=== PATIENT | female | born 1945 | race Hispanic/Latino ===

== ENCOUNTER 2016-10-19 18:04 | Inpatient (IN) | payer BC, MEDICARE, OTHER ==
[2016-10-19 18:08] VITALS: BMI 39.6
--- NOTE | 2016-10-19 18:40 | ED PDOC ---
Arrival/HPI - History of Present Illness Time/Duration: 1-3 hours Symptom Onset: Sudden Symptom Course: Unchanged Quality: Stabbing <Danielle Houser - Last Filed: 10/19/16 19:14> <Bashir Agudelo - Last Filed: 10/19/16 19:29> - General Chief Complaint: Chest Pain Time Seen by Provider: 10/19/16 18:11 - History of Present Illness Narrative History of Present Illness (Text): 10/19/16 18:36 71 year old female with past medical history of DM, CAD, history of fall with resultant difficulty walking presents with chest pain that began about 3 hours ago. Patient was laying in bed when pain began all of a sudden. pain is located in center of chest and radiates to B/L shoulders. Pain feels like a sharp stabbing pain. Pain is accompanied with SOB, diaphoresis and Nausea. Patient states that she had a fall last year and has a difficult time walking since then. Patient denie shaving any history of PE or DVT. No recent travels. Patient had a Lexiscan on 11/2016 which was essentially negative. Patient received Aspirin and nitro in ambulance (Danielle Houser) Past Medical History - Provider Review Nursing Documentation Reviewed: Yes - Infectious Disease Hx of Infectious Diseases: None - Tetanus Immunization Tetanus Immunization: Unknown - Cardiac Hx NC: Yes Hx Hypertension: Yes - Neurological Hx Syncope: Yes - Endocrine/Metabolic Hx Endocrine Disorders: Yes Hx Diabetes Mellitus Type 2: Yes - Musculoskeletal/Rheumatological Hx Arthritis: Yes - Gastrointestinal Hx Gastrointestinal Disorders: Yes - Genitourinary/Gynecological Hx Urinary Tract Infection: Yes (frequent) - Surgical History Hx Joint Replacement: Yes (right knee) Other/Comment: evangelina ryan cystocele repair - Anesthesia Hx Anesthesia: Yes Hx Anesthesia Reactions: No Hx Malignant Hyperthermia: No - Suicidal Assessment Feels Threatened In Home Enviroment: No <Danielle Houser - Last Filed: 10/19/16 19:14> Family/Social History Family/Social History: Unknown Family HX Smoking Status: Former Smoker Hx Alcohol Use: No Hx Substance Use Treatment: No <Danielle Houser - Last Filed: 10/19/16 19:14> Allergies/Home Meds <Danielle Houser - Last Filed: 10/19/16 19:14> <Bashir Agudelo - Last Filed: 10/19/16 19:29> Allergies/Adverse Reactions: Allergies acetaminophen [From Percocet] Allergy (Intermediate, Verified 11/23/15 11:04) VOMITING bacitracin Allergy (Intermediate, Verified 11/23/15 11:04) REDNESS oxycodone HCl [From Percocet] Allergy (Intermediate, Verified 11/23/15 11:04) VOMITING Penicillins Allergy (Intermediate, Verified 11/23/15 11:04) RASH shellfish derived Allergy (Intermediate, Verified 11/23/15 11:04) RASH Home Medications: Home Meds Medication Instructions Recorded Confirmed Aspirin [Aspirin Chewable] 81 mg PO DAILY 04/23/15 10/19/16 Clopidogrel Bisulfate [Plavix] 75 mg PO DAILY 04/23/15 10/19/16 Glipizide 10 mg PO BID 04/23/15 10/19/16 Insulin Detemir [Levemir] 60 unit SC HS 04/23/15 10/19/16 Isosorbide Mononitrate [Imdur] 60 mg PO DAILY 04/23/15 10/19/16 Metoprolol Tartrate [Lopressor] 25 mg PO BID 04/23/15 10/19/16 Montelukast Sodium [Singulair] 10 mg PO DAILY 04/23/15 10/19/16 Ramipril [Altace] 10 mg PO BID 04/23/15 10/19/16 Gabapentin [Neurontin] 300 mg PO TID 11/23/15 10/19/16 Insulin Aspart/Insulin Aspar 60 units SC ACB 11/23/15 10/19/16 [Novolog Mix 70/30 (70/30 units/ml)] Rosuvastatin Calcium [Crestor] 20 mg PO DAILY 11/23/15 10/19/16 Review of Systems - Review of Systems Constitutional: Normal Eyes: Normal ENT: Normal. absent: Sore Throat, Rhinorrhea Respiratory: SOB. absent: Cough Cardiovascular: Chest Pain, Calf Pain. absent: Palpitations, Edema Gastrointestinal: Normal. absent: Abdominal Pain, Constipation, Diarrhea, Nausea, Vomiting Genitourinary Female: Normal. absent: Dysuria, Frequency Musculoskeletal: Normal. absent: Arthralgias, Back Pain Skin: Normal. absent: Rash, Skin Lesions Neurological: Normal. absent: Headache, Dizziness Endocrine: Diaphoresis Hemo/Lymphatic: Normal <Karim,Danielle - Last Filed: 10/19/16 19:14> Physical Exam Temperature: Afebrile Blood Pressure: Normal Pulse: Tachycardic Respiratory Rate: Normal Appearance: Positive for: Uncomfortable Pain Distress: Moderate Mental Status: Positive for: Alert and Oriented X 3 - Systems Exam Head: Present: Atraumatic, Normocephalic Pupils: Present: PERRL Extroacular Muscles: Present: EOMI Conjunctiva: Present: Normal Mouth: Present: Moist Mucous Membranes Respiratory/Chest: Present: Clear to Auscultation, Good Air Exchange. No: Respiratory Distress, Accessory Muscle Use, Wheezes, Rales, Rhonchi Cardiovascular: Present: Normal S1, S2, Tachycardic. No: Murmurs, Irregular Rhythm, Rub, Gallop Abdomen: Present: Normal Bowel Sounds. No: Tenderness, Distention, Peritoneal Signs, Guarding Lower Extremity: Present: CALF TENDERNESS (left lower leg), NORMAL PULSES. No: Edema Neurological: Present: GCS=15 Skin: Present: Warm, Dry, Normal Color. No: Rashes Psychiatric: Present: Alert, Oriented x 3, Normal Insight, Normal Concentration <Karim,Danielle - Last Filed: 10/19/16 19:14> Medical Decision Making - EKG Interpretation Interpreted by ED Physician: Yes Type: 12 lead EKG <Mik,Danielle - Last Filed: 10/19/16 19:14> <Bashir Agudelo - Last Filed: 10/19/16 19:29> ED Course and Treatment: 10/19/16 18:44 CP r/o PE vs. ACS vs. PNA. Patient is tachycardic on exam with HR of 108 Will check; EKG CTA PE protocol CBC CMP cardiac isoenzymes LE US CXR Patient will be given morphine 2 mg IVP 10/19/16 19:15 Initial blood work shows elevated WBC count Will check: VBG with lactic acid blood and urine cultures and urinalysis Patient Blood glucose is 349. Patient will be given 10 units of Levemir (Karim,Danielle) 10/19/16 19:26 I agree with resident history and physical, disposition and plan. WBC elevated at 17. Blood cultures and UA added. RN reported no fever. Pending documentation. Insulin give for glucose elevation. Case signed out to Dr. Simon to f/u Labs, UA, Sono, CT, reevaluation and admit. (Bashir Agudelo) - Lab Interpretations Lab Results: 10/19/16 18:47 10/19/16 18:47 Lab Results 10/19/16 18:47: Sodium 128 L, Potassium 5.0, Chloride 91 L, Carbon Dioxide 26, Anion Gap 16, BUN 27 H, Creatinine 1.2, Est GFR ( Amer) 53, Est GFR (Non- Af Amer) 44, Random Glucose 346 H*, Calcium 8.7, Total Bilirubin 0.5, AST 40 H, ALT 27, Alkaline Phosphatase 140 H, Lactate Dehydrogenase 434, Total Creatine Kinase 37, Troponin I < 0.01, Total Protein 7.4, Albumin 3.7, Globulin 3.8, Albumin/Globulin Ratio 1.0 L 10/19/16 18:47: WBC 17.7 H, RBC 5.08, Hgb 12.9, Hct 40.3, MCV 79.3 L, MCH 25.4, MCHC 32.0, RDW 15.6 H, Plt Count 348, MPV 9.4 - RAD Interpretation Radiology Orders: 10/19/16 18:28 DUPLEX LOWER EXTRM VEIN BILAT [US] Stat 10/19/16 18:34 ANGIO CHEST PE PROTOCOL [CT] Stat - EKG Interpretation EKG Interpretation (Text): 10/19/16 18:53 Sinus tachycardia HR of 109 ST depressions in V5, V6, I. Prominent S waves in I. T wave inversions in III ST depressions are new compared to previous EKG (Danielle Houser) - Medication Orders Current Medication Orders: Insulin Detemir (Levemir) 10 unit SC ONCE ONE Stop: 10/19/16 19:31 Discontinued Medications Morphine Sulfate (Morphine) 2 mg IVP STAT STA Stop: 10/19/16 19:05 Disposition/Present on Arrival - Present on Arrival Any Indicators Present on Arrival: Yes History of DVT/PE: No History of Uncontrolled Diabetes: Yes Urinary Catheter: No History of Decub. Ulcer: No History Surgical Site Infection Following: None - Disposition Have Diagnosis and Disposition been Completed?: Yes Disposition Time: 19:16 <Danielle Houser - Last Filed: 10/19/16 19:14> - Present on Arrival Any Indicators Present on Arrival: Yes - Disposition Have Diagnosis and Disposition been Completed?: No <Bashir Agudelo - Last Filed: 10/19/16 19:29> - Disposition Diagnosis: Chest pain Patient Problems: Current Active Problems Problem Status Onset Chest pain Acute Condition: GUARDED Discharge Instructions (ExitCare): Chest Pain (ED) Referrals: Ariel Whitehead MD [Primary Care Provider] - Follow up with primary Forms: [employer] (Turkish)
[2016-10-19 18:57] LABS: HEMOGLOBIN 12.9 gm/dL (12.0-16.0); MEAN CELL VOLUME 79.3 fL (80.0-105.0); MEAN CORPUSCULAR HEMOGLOBIN 25.4 pg (25.0-35.0); MEAN PLATELET VOLUME 9.4 fl (7.0-11.0); RBC 5.08 10^6/uL (3.5-6.1); RED CELL DISTRIBUTION WIDTH 15.6 % (11.5-14.5); WHITE BLOOD COUNT 17.7 10^3/ul (4.5-11.0)
[2016-10-19] MEDS ORDERED: Morphine 4 mg/ml ISec IVP STA (19:02)
[2016-10-19 19:03] LABS: ALBUMIN 3.7 g/dL (3.0-4.8); ALT/SGPT 27 U/L (7-56); AST/SGOT 40 U/L (15-39); BLOOD UREA NITROGEN 27 mg/dL (7-21); CALCIUM 8.7 mg/dL (8.4-10.5); GFR AFRICAN-AMERICAN 53; GFR NON-AFRICAN AMERICAN 44
[2016-10-19] MEDS ORDERED: Morphine 2 mg/ml ISec IVP STA (19:04)
[2016-10-19 19:15] LABS: TROPONIN I < 0.01 ng/mL
[2016-10-19] MEDS ORDERED: Insulin Detemir 100 units/ml Vial (Levemir) SC ONE (19:30)
[2016-10-19] MEDS ORDERED: Enoxaparin 120 mg Syringe SC STA (19:34)
[2016-10-19] MEDS ORDERED: Sodium Chloride 0.9% 500 ML IV STA ×2 (20:03→20:15)
--- NOTE | 2016-10-19 20:16 | ED PDOC ---
Physical Exam Vital Signs Temp Pulse Resp BP Pulse Ox 10/19/16 22:31 85 18 137/67 91 L 10/19/16 19:26 97.7 F 10/19/16 18:05 105 H 15 139/87 94 L Medical Decision Making ED Course and Treatment: 10/19/16 20:13 sign out from dayshift pt with chest pain, leukocytosis, hyperglycemia, multiple episodes of diarrhea and abdominal discomfort. As her signout, there is suspicion for PE, also EKG with ST-depressions lovenox ordered coags also added on pt being hydrated before going to CT 10/19/16 20:23 pt c/o abd pain, morphine ordered LLQ ttp on exam pt states she has chronic umbulical drainage as well abx ordered pt for CT chest/abd/pelvis 10/19/16 20:26 Patient shows sinus tachycardia 109 bpm, no ST segment elevations. ST depressions noted in lateral leads. Interpreted by me. These were not present on patient's previous records from 2016. 10/19/16 21:33 pt states she has itching and rash from shellfish solumedrol and benadryl ordered before IV contrast CT Angiography Chest With Intravenous Contrast IMPRESSION: 1 cm spiculated focus at left lung apex may be related to scarring, but comparison with prior imaging versus followup imaging recommended for further evaluation. Increased markings at left lung base likely on the basis of atelectasis, but cannot definitively exclude developing infiltrate. Atelectasis/ scarring.. Dictated and Authenticated by: Blanka Christina MD 10/19/2016 11:04 PM Eastern Time ([place] & Lisa CT Abdomen and Pelvis With Intravenous Contrast IMPRESSION: 1. Liver is enlarged measuring 22 CM craniocaudal. 2. Multiple calcified gallstones are present. 3. There appear to be multiple calcifications within the common bile duct compatible with choledocholithiasis. 4. Small right adrenal nodule measuring 1.3 CM is incompletely characterized on this postcontrast study. 5. There is a question of mild pericolonic stranding at the sigmoid colon. It is difficult to exclude the possibility of a mild diverticulitis. Please correlate clinically. 6. There are a few tiny gas bubbles nondependent in the bladder. This could potentially relate to recent instrumentation. Alternatively, this could relate to infectious process or colovesical fistula. Please correlate clinically. 7. Additional incidental and/or chronic findings as described. Dictated and Authenticated by: Enrico Mansfield MD 10/19/2016 11:16 PM Eastern Time ([place] & Lisa) 10/19/16 23:[address] Quiñonez in 2011. Agreeable with being admitted to his service again dw Dr. Negrete in detail, accepted pt resident informed pt states she currently has no abd pain. states she still has slight chest discomfort repeat EKG ordered, will also admin ntg 10/20/16 00:00 Repeat EKG shows no evolving changes. Normal sinus, 81 bpm, lateral ST depressions. Interpreted by me. - Lab Interpretations Lab Results: 10/19/16 18:47 10/19/16 18:47 Lab Results 10/19/16 20:16: pO2 158 H, VBG pH 7.33, VBG pCO2 44.0, VBG HCO3 23.2, VBG O2 Sat (Calc) 99.0 H, VBG Base Excess -2.8 L 10/19/16 18:47: Sodium 128 L, Potassium 5.0, Chloride 91 L, Carbon Dioxide 26, Anion Gap 16, BUN 27 H, Creatinine 1.2, Est GFR ( Amer) 53, Est GFR (Non- Af Amer) 44, Random Glucose 346 H*, Calcium 8.7, Total Bilirubin 0.5, AST 40 H, ALT 27, Alkaline Phosphatase 140 H, Lactate Dehydrogenase 434, Total Creatine Kinase 37, Troponin I < 0.01, Total Protein 7.4, Albumin 3.7, Globulin 3.8, Albumin/Globulin Ratio 1.0 L 10/19/16 18:47: WBC 17.7 H, RBC 5.08, Hgb 12.9, Hct 40.3, MCV 79.3 L, MCH 25.4, MCHC 32.0, RDW 15.6 H, Plt Count 348, MPV 9.4 - RAD Interpretation Radiology Orders: 10/19/16 18:28 DUPLEX LOWER EXTRM VEIN BILAT [US] Stat 10/19/16 18:34 ANGIO CHEST PE PROTOCOL [CT] Stat 10/19/16 20:22 ABD & PELVIS IV CONTRAST ONLY [CT] Stat - Medication Orders Current Medication Orders: Discontinued Medications Aspirin (Aspirin Chewable) 324 mg PO STAT STA Stop: 10/19/16 19:34 Last Admin: 10/19/16 20:01 Dose: 324 mg Diphenhydramine HCl (Benadryl) 50 mg IVP STAT STA Stop: 10/19/16 21:34 Last Admin: 10/19/16 21:39 Dose: 50 mg Diphenhydramine HCl (Benadryl) Confirm Administered Dose 50 mg .ROUTE .STK-MED ONE Stop: 10/19/16 21:37 Last Admin: 10/19/16 21:39 Dose: Enoxaparin Sodium (Lovenox) 110 mg SC STAT STA PRN Reason: Protocol Stop: 10/19/16 19:35 Last Admin: 10/19/16 20:00 Dose: 110 mg Sodium Chloride (Sodium Chloride 0.9%) 500 mls @ 999 mls/hr IV .Q31M STA Stop: 10/19/16 20:33 Last Admin: 10/19/16 20:04 Dose: 999 mls/hr Sodium Chloride (Sodium Chloride 0.9%) 500 mls @ 1,000 mls/hr IV .Q30M STA Stop: 10/19/16 20:44 Last Admin: 10/19/16 20:15 Dose: Metronidazole (Flagyl) 500 mg in 100 mls @ 100 mls/hr IVPB STAT STA PRN Reason: Protocol Stop: 10/19/16 21:20 Ceftriaxone Sodium (Rocephin 1 Gram Ivpb) 1 gm in 100 mls @ 200 mls/hr IV STAT STA PRN Reason: Protocol Stop: 10/19/16 20:50 Last Admin: 10/19/16 23:25 Dose: 200 mls/hr Insulin Detemir (Levemir) 10 unit SC ONCE ONE Stop: 10/19/16 19:31 Last Admin: 10/19/16 20:00 Dose: Not Given Non-Admin Reason: Patient Refused Iohexol (Omnipaque 350 150 Ml) Confirm Administered Dose 150 ml .ROUTE .STK-MED ONE Stop: 10/19/16 21:39 Methylprednisolone (Solu-Medrol) 125 mg IVP STAT STA Stop: 10/19/16 21:34 Last Admin: 10/19/16 21:39 Dose: 125 mg Methylprednisolone (Solu-Medrol) Confirm Administered Dose 125 mg .ROUTE .STK- MED ONE Stop: 10/19/16 21:37 Last Admin: 10/19/16 21:40 Dose: Morphine Sulfate (Morphine) 2 mg IVP STAT STA Stop: 10/19/16 19:05 Last Admin: 10/19/16 20:00 Dose: 2 mg Morphine Sulfate (Morphine) 8 mg IVP STAT STA Stop: 10/19/16 20:22 Last Admin: 10/19/16 20:32 Dose: 8 mg Disposition/Present on Arrival - Present on Arrival Any Indicators Present on Arrival: Yes History of DVT/PE: No History of Uncontrolled Diabetes: Yes Urinary Catheter: No History of Decub. Ulcer: No History Surgical Site Infection Following: None - Disposition Have Diagnosis and Disposition been Completed?: Yes Diagnosis: Chest pain Disposition: HOSPITALIZED Disposition Time: 23:58 Patient Plan: Admission Patient Problems: Current Active Problems Problem Status Onset Chest pain Acute Condition: FAIR Discharge Instructions (ExitCare): Chest Pain (ED) Referrals: Ariel Whitehead MD [Primary Care Provider] - Follow up with primary Forms: [employer] (Pashto)
[2016-10-19 20:20] LABS: VENOUS BLOOD GAS BASE EXCESS -2.8 mmol/L (0.0-2.0); VENOUS BLOOD GAS PO2 158 mm/Hg (30-55); VENOUS BLOOD PH 7.33 (7.32-7.43)
[2016-10-19] MEDS ORDERED: cefTRIAXone 1 gm 1 GM/100 ML BAG IV STA (20:21)
[2016-10-19] MEDS ORDERED: metroNIDAZOLE IV 500 mg/100 ml 500 MG/100 ML BAG IVPB STA (20:21)
[2016-10-19] MEDS ORDERED: DiphenhydrAMINE 50 mg/ml Inj IVP STA (21:33)
[2016-10-19] MEDS ORDERED: DiphenhydrAMINE 50 mg/ml Inj ONE (21:36)
--- NOTE | 2016-10-19 23:04 | CT ---
EXAM: CT Angiography Chest With Intravenous Contrast CLINICAL HISTORY: 71 years old, female; Pain; Chest pain; Additional info: Chest pain, SOB TECHNIQUE: Axial computed tomographic angiography images of the chest with intravenous contrast using pulmonary embolism protocol. This CT exam was performed using one or more of the following dose reduction techniques: automated exposure control, adjustment of the mA and/or kV according to patient size, and/or use of iterative reconstruction technique. MIP reconstructed images were created and reviewed. Coronal and sagittal reformatted images were created and reviewed. CONTRAST: 149 mL of OMNI 349 administered intravenously. COMPARISON: TMT - MYOCARDIAL STRESS REST SPECT 12/06/2015 7:27:19 AM FINDINGS: Pulmonary arteries: Unremarkable as visualized. No pulmonary embolism. Aorta: Atherosclerosis. No thoracic aortic aneurysm. Lungs: 1 cm spiculated focus at left lung apex may be related to scarring, but comparison with prior imaging versus followup imaging recommended for further evaluation. Increased markings at left lung base likely on the basis of atelectasis, but cannot definitively exclude developing infiltrate. Atelectasis/scarring. No mass. No consolidation. Pleural space: No significant effusion. No pneumothorax. Heart: No cardiomegaly. No significant pericardial effusion. No evidence of RV dysfunction. Bones: No acute fracture. Degenerative changes. Lymph nodes: No enlarged lymph nodes. Hypoattenuating lesion noted in the left lobe of the liver. Right adrenal nodule/mass visualized. Technique limits evaluation. Correlate with report for currently performed dedicated study. IMPRESSION: 1 cm spiculated focus at left lung apex may be related to scarring, but comparison with prior imaging versus followup imaging recommended for further evaluation. Increased markings at left lung base likely on the basis of atelectasis, but cannot definitively exclude developing infiltrate. Atelectasis/scarring. Please see additional details/findings as above.
--- NOTE | 2016-10-19 23:16 | CT ---
EXAM: CT Abdomen and Pelvis With Intravenous Contrast CLINICAL HISTORY: 71 years old, female; Pain; Abdominal pain; Prior surgery; Surgery type: Hysterectomy - 3 hernia repairs; Additional info: Abd pain, leukocytosis TECHNIQUE: Axial computed tomography images of the abdomen and pelvis with intravenous contrast. This CT exam was performed using one or more of the following dose reduction techniques: automated exposure control, adjustment of the mA and/or kV according to patient size, and/or use of iterative reconstruction technique. Coronal and sagittal reformatted images were created and reviewed. CONTRAST: 149 mL of OMNI 350 administered intravenously. COMPARISON: No relevant prior studies available. FINDINGS: Lower thorax: Mild atelectasis at the bases, left greater than right. ABDOMEN: Liver: Liver is enlarged measuring 22 CM craniocaudal. There are no focal liver lesions present. Gallbladder and bile ducts: Multiple calcified gallstones are present. There appear to be multiple calcifications within the common bile duct compatible with choledocholithiasis. Pancreas: Unremarkable. No mass. No ductal dilation. Spleen: The spleen is normal. Adrenals: Small right adrenal nodule measuring 1.3 CM is incompletely characterized on this postcontrast study. Kidneys and ureters: There are bilateral renal cysts, largest at the left midpole measuring 3.1 CM. Stomach and bowel: There is a question of mild pericolonic stranding at the sigmoid colon. It is difficult to exclude the possibility of a mild diverticulitis. Please correlate clinically. The stomach is normal. Moderate diverticulosis is present in the sigmoid and descending colon. Colonic constipation is present. There is no evidence of intestinal obstruction. There are multiple small ventral hernia is, some of which contain only fat and others contain unobstructed loops of small bowel. This is despite the presence of a hernia mesh at the anterior abdominal fascia on the left. Appendix: No findings to suggest acute appendicitis. PELVIS: Bladder: There are a few tiny gas bubbles nondependent in the bladder. This could potentially relate to recent instrumentation. Alternatively, this could relate to infectious process or colovesical fistula. Please correlate clinically. Reproductive: There has been a hysterectomy. ABDOMEN and PELVIS: Intraperitoneal space: There is no evidence of free intraperitoneal fluid. There is no free intraperitoneal air. Bones/joints: There are old healed fractures of the left inferior pubic ramus and left subcapital region. There are moderate degenerative changes present. There is moderate diffuse osteopenia. No dislocation. Soft tissues: Unremarkable. Vasculature: Abdominal aorta demonstrates moderate to severe atherosclerotic calcification without aneurysm. Lymph nodes: There is no evidence of lymphadenopathy. IMPRESSION: 1. Liver is enlarged measuring 22 CM craniocaudal. 2. Multiple calcified gallstones are present. 3. There appear to be multiple calcifications within the common bile duct compatible with choledocholithiasis. 4. Small right adrenal nodule measuring 1.3 CM is incompletely characterized on this postcontrast study. 5. There is a question of mild pericolonic stranding at the sigmoid colon. It is difficult to exclude the possibility of a mild diverticulitis. Please correlate clinically. 6. There are a few tiny gas bubbles nondependent in the bladder. This could potentially relate to recent instrumentation. Alternatively, this could relate to infectious process or colovesical fistula. Please correlate clinically. 7. Additional incidental and/or chronic findings as described.
--- NOTE | 2016-10-20 01:02 | CP.PCM.HP ---
History of Present Illness - History of Present Illness History of Present Illness: CC: chest pain 71 F with pmh of IDDM, CAD 4 stents, Diverticulitis, colotis, presents with chest pain. Pt states that her chest pain fisrt started 3-4 hours prior to arrival. Patient was laying in bed when pain began all of a sudden. Pt states that she felt like her chest is going to split so she came to the ED. Pain 10/ 10 in severity. radiating to b/l shoulders and neck. Pain feels like a sharp stabbing pain. She states that her chest pain was associated with some nausea and diaphoresis. She denied any shortness of breath. She denies doing at home to make it better. No other complaints. Denies any acevedo, dizziness, f/c, son, abd pain, n/v/d. PMH: IDDM, CAD 4 stents, Diverticulitis, colitis PSH: hysterectomy, appendectomy, mesh implant in belly "broke" ALL: PCN sea food FH: sis with DM, Brother had "hole in heart" SH: smoked for >60 years, denies drinking or drugs Present on Admission - Present on Admission Any Indicators Present on Admission: No Review of Systems - Review of Systems All systems: reviewed and no additional remarkable complaints except (HPI) Past Patient History - Infectious Disease Hx of Infectious Diseases: None - Tetanus Immunizations Tetanus Immunization: Unknown - Past Medical History & Family History Past Medical History?: Yes - Past Social History Smoking Status: Former Smoker - CARDIAC Hx Heart Attack: Yes Hx Hypertension: Yes - NEUROLOGICAL Hx Syncope: Yes - ENDOCRINE/METABOLIC Hx Endocrine Disorders: Yes Hx Diabetes Mellitus Type 2: Yes - MUSCULOSKELETAL/RHEUMATOLOGICAL Hx Arthritis: Yes - GASTROINTESTINAL Hx Gastrointestinal Disorders: Yes - GENITOURINARY/GYNECOLOGICAL Hx Urinary Tract Infection: Yes (frequent) - SURGICAL HISTORY Hx Joint Replacement: Yes (right knee) Other/Comment: evangelina ryan cystocele repair - ANESTHESIA Hx Anesthesia: Yes Hx Anesthesia Reactions: No Hx Malignant Hyperthermia: No Meds Allergies/Adverse Reactions: Allergies Allergy/AdvReac Type Severity Reaction Status Date / Time acetaminophen [From Percocet] Allergy Intermediate VOMITING Verified 11/23/15 11 :04 bacitracin Allergy Intermediate REDNESS Verified 11/23/15 11:04 oxycodone HCl [From Percocet] Allergy Intermediate VOMITING Verified 11/23/15 11 :04 Penicillins Allergy Intermediate RASH Verified 11/23/15 11:04 shellfish derived Allergy Intermediate RASH Verified 11/23/15 11:04 Physical Exam - Constitutional Appears: No Acute Distress - Head Exam Head Exam: ATRAUMATIC, NORMAL INSPECTION, NORMOCEPHALIC - Eye Exam Eye Exam: EOMI, Normal appearance, PERRL Pupil Exam: NORMAL ACCOMODATION, PERRL - ENT Exam ENT Exam: Mucous Membranes Moist, Normal Exam - Neck Exam Neck exam: Positive for: Normal Inspection - Respiratory Exam Respiratory Exam: Clear to Auscultation Bilateral, NORMAL BREATHING PATTERN. absent: Wheezes - Cardiovascular Exam Cardiovascular Exam: REGULAR RHYTHM, RRR, +S1, +S2 - GI/Abdominal Exam GI & Abdominal Exam: Normal Bowel Sounds, Soft. absent: Tenderness - Extremities Exam Extremities exam: Positive for: normal inspection. Negative for: calf tenderness - Back Exam Back exam: NORMAL INSPECTION - Neurological Exam Neurological exam: Alert, CN II-XII Intact, Oriented x3 - Psychiatric Exam Psychiatric exam: Normal Affect, Normal Mood - Skin Skin Exam: Dry, Intact, Normal Color, Warm Results - Vital Signs Recent Vital Signs: Last Vital Signs Temp 97.7 F 10/19/16 19:26 Pulse 83 10/20/16 00:00 Resp 18 10/20/16 00:00 BP 123/60 10/20/16 00:00 Pulse Ox 94 L 10/20/16 00:00 - Labs Result Diagrams: 10/19/16 18:47 10/19/16 18:47 Assessment & Plan - Assessment and Plan (Free Text) Assessment: 71 F with pmh of IDDM, CAD 4 stents, Diverticulitis, colotis, presents with chest pain. R/o ACS. 1. Chest pain r/o ACS - Aspirin 325mg x 1, lovenox 110mg x 1 - EKG in the ED showed 81bpm some st depression in the lateral leads - Trops x 1 negative - Serial trops - 12/06/15 stress test: normal SPECT LVEF 64% no chnage to prior 06/05/13 - F/u Ech in the AM - cardiology consulted for recs - Cont aspirin and plavix - Cont ramipril, statin, Metoprolol, Imdur - F/u Lipid panel, TSH, Hba1c - Daily labs -US ext: prelim read negative for DVTs - CT chest : 1 cm spiculated focus at left lung apex may be related to scarring , but comparison with prior imaging versus followup imaging recommended for further evaluation. Increased markings at left lung base likely on the basis of atelectasis, but cannot definitively exclude developing infiltrate. Atelectasis/ scarring. - CT abdomen 1. Liver is enlarged measuring 22 CM craniocaudal. 2. Multiple calcified gallstones are present. 3. There appear to be multiple calcifications within the common bile duct compatible with choledocholithiasis. 4. Small right adrenal nodule measuring 1.3 CM is incompletely characterized on this postcontrast study. 5. There is a question of mild pericolonic stranding at the sigmoid colon. It is difficult to exclude the possibility of a mild diverticulitis. Please correlate clinically. 6. There are a few tiny gas bubbles nondependent in the bladder. This could potentially relate to recent instrumentation. Alternatively, this could relate to infectious process or colovesical fistula. Please correlate clinically. 2. DM: - Cont home Insulin Levemir - novolog 70/30 - ACHS 3. HLD: - Cont home statin 4. Hyponatremia - s/p 2 L bolus in the ED - F/u morning Na 5. GI/DVT ppx - Pepcid and Lovenox sc Case and plan was reviewed and discussed with Dr Negrete.
[2016-10-20 02:13] LABS: VENOUS BLOOD GAS BASE EXCESS -0.7 mmol/L (0.0-2.0); VENOUS BLOOD GAS PO2 43 mm/Hg (30-55)
[2016-10-20 02:40] LABS: INR 0.97 (0.93-1.08); PARTIAL THROMBOPLASTIN TIME 38.9 Seconds (23.7-30.8); PROTHROMBIN TIME 10.5 Seconds (9.9-11.8)
[2016-10-20] MEDS ORDERED: Morphine 4 mg/ml ISec IVP STA ×2 (02:50→07:11)
[2016-10-20 07:06] LABS: BASO # 0.01 K/mm3 (0.0-2.0); BASO % 0.1 % (0.0-3.0); EOS % 0.1 % (1.5-5.0); GRAN # 13.22 (1.4-6.5); GRAN % 93.3 % (50.0-68.0); HEMOGLOBIN 12.8 gm/dL (12.0-16.0); LYMPH # 0.8 (1.2-3.4); LYMPH % 5.9 % (22.0-35.0); MEAN CELL VOLUME 79.8 fL (80.0-105.0); MEAN CORPUSCULAR HEMOGLOBIN 25.3 pg (25.0-35.0); MEAN CORPUSCULAR HGB CONC 31.8 g/dl (31.0-37.0); MEAN PLATELET VOLUME 9.3 fl (7.0-11.0); MONO # 0.1 (0.1-0.6); MONO % 0.6 % (1.0-6.0); PLATELET COUNT 309 10^3/uL (120.0-450.0); RBC 5.05 10^6/uL (3.5-6.1); RED CELL DISTRIBUTION WIDTH 15.9 % (11.5-14.5); WHITE BLOOD COUNT 14.2 10^3/ul (4.5-11.0)
[2016-10-20 07:22] LABS: ALB/GLOB RATIO 1.1 (1.1-1.8); ALBUMIN 3.7 g/dL (3.0-4.8); ALT/SGPT 18 U/L (7-56); AST/SGOT 23 U/L (15-39); BLOOD UREA NITROGEN 23 mg/dL (7-21); CALCIUM 8.8 mg/dL (8.4-10.5); GFR AFRICAN-AMERICAN > 60; GFR NON-AFRICAN AMERICAN 54; HDL CHOLESTEROL 31 mg/dL (29-60)
[2016-10-20 07:33] LABS: LDL CHOLESTEROL 130 mg/dL (0-129)
[2016-10-20 07:35] LABS: TROPONIN I 0.26 ng/mL
[2016-10-20] MEDS ORDERED: Lidocaine 2% Inj (20ml) ONE ×2 (07:39→08:19)
[2016-10-20] MEDS ORDERED: Midazolam 2 MG/2 ML VIAL ONE ×4 (07:40→10:55)
[2016-10-20] MEDS ORDERED: Iodixanol 320 MG/ML 200 ML BOTTLE IV ONE (07:41)
[2016-10-20] MEDS ORDERED: Iodixanol 320 MG/ML 100 ML BOTTLE IV ONE (07:41)
[2016-10-20] MEDS ORDERED: DiphenhydrAMINE 50 mg/ml Inj ONE (07:42)
[2016-10-20] MEDS ORDERED: Famotidine 20mg/50ml 20 MG/50 ML BAG IVPB ONE (07:42)
[2016-10-20] MEDS ORDERED: Nitroglycerin 50mg in D5W 50 MG/250 ML BOTTLE IV ONE (08:29)
[2016-10-20] MEDS ORDERED: Morphine 2 mg/ml ISec ONE ×2 (08:38→08:42)
[2016-10-20] MEDS ORDERED: Phenylephrine 10 mg/ml Inj ONE (08:48)
--- NOTE | 2016-10-20 09:10 | CARD ---
APPROVED REPORT EKG Measurement Heart [id number] <Conclusion> Normal sinus rhythm PRWP Nonspecific ST abnormality Prolonged QTc
--- NOTE | 2016-10-20 09:16 | CARD ---
APPROVED REPORT EKG Measurement Heart [id number] <Conclusion> Sinus tachycardia QS in V 1, possible septal infarct, age undetermined and new since ECG 02/02/12 STTW changes c/w ischemia, new Prolonged QTc.
--- NOTE | 2016-10-20 09:19 | CARD ---
APPROVED REPORT EKG Measurement Heart [id number] <Conclusion> Normal sinus rhythm STTW changes
[2016-10-20] MEDS ORDERED: Sodium Chloride 0.9% 1,000 ML IV SCH (09:30)
[2016-10-20 10:56] LABS: BLOOD UREA NITROGEN 22 mg/dL (7-21); CALCIUM 8.5 mg/dL (8.4-10.5); GFR AFRICAN-AMERICAN > 60; GFR NON-AFRICAN AMERICAN > 60
[2016-10-20 11:07] LABS: VENOUS BLOOD GAS BASE EXCESS -6.7 mmol/L (0.0-2.0); VENOUS BLOOD GAS PO2 39 mm/Hg (30-55)
[2016-10-20 11:11] LABS: VENOUS BLOOD PH 7.15 (7.32-7.43)
[2016-10-20] MEDS: Enoxaparin 40 mg Syringe SC SCH (11:14)
--- NOTE | 2016-10-20 12:53 | CP.PCM.CON ---
History of Present Illness - History of Present Illness History of Present Illness: 71 y/o F presented to the ICU after cardiac cath for unstable NSTEMI with active CP. S/P LAD and Circ JUNIOR with hypotension during cath which required vasopressors briefly. Currently aa o x 3 with intact vital signs. Review of Systems - Constitutional Constitutional: absent: As Per HPI, Anorexia, Chills, Daytime Sleepiness, Excessive Sweating, Fatigue, Fever, Frequent Falls, Headache, Increased Appetite , Lethargy, Malaise, Night Sweats, Snoring, Sleep Apnea, Weight Gain, Weight Loss, Weakness, Other - EENT Eyes: absent: As Per HPI, Blind Spots, Blurred Vision, Change in Vision, Decreased Night Vision, Diplopia, Discharge, Dry Eye, Exophthalmos, Floaters, Irritation, Itchy Eyes, Loss of Peripheral Vision, Pain, Photophobia, Requires Corrective Lenses, Sees Flashes, Spots in Vision, Tunnel Vision, Other Visual Disturbances, Loss of Vision, Other Ears: absent: As Per HPI, Decreased Hearing, Ear Discharge, Ear Pain, Tinnitus, Abnormal Hearing, Disequilibrium, Dizziness, Other Nose/Mouth/Throat: absent: As Per HPI, Epistaxis, Nasal Congestion, Nasal Discharge, Nasal Obstruction, Nasal Trauma, Nose Pain, Post Nasal Drip, Sinus Pain, Sinus Pressure, Bleeding Gums, Change in Voice, Dental Pain, Dry Mouth, Dysphagia, Halitosis, Hoarsness, Lip Swelling, Mouth Lesions, Mouth Pain, Odynophagia, Sore Throat, Throat Swelling, Tongue Swelling, Facial Pain, Neck Pain, Neck Mass, Other - Breasts Breasts: absent: As Per HPI, Change in Shape, Mass, Pain, Nipple Discharge, Nipple Inversion, Skin Changes, Swelling, Other - Cardiovascular Cardiovascular: absent: As Per HPI, Acrocyanosis, Chest Pain, Chest Pain at Rest , Chest Pain with Activity, Claudication, Diaphoresis, Dyspnea, Dyspnea on Exertion, Edema, Irregular Heart Rhythm, Pain Radiating to Arm/Neck/Jaw, Leg Edema, Leg Ulcers, Lightheadedness, Orthopnea, Palpitations, Paroxysmal Nocturnal Dyspnea, Pedal Edema, Radiating Pain, Rapid Heart Rate, Slow Heart Rate, Syncope, Other - Respiratory Respiratory: absent: As Per HPI, Cough, Dyspnea, Hemoptysis, Dyspnea on Exertion , Wheezing, Snoring, Stridor, Pain on Inspiration, Chest Congestion, Excessive Mucous Production, Change in Mucous Color, Pain with Coughing, Other - Gastrointestinal Gastrointestinal: absent: As Per HPI, Abdominal Pain, Belching, Bloating, Change in Bowel Habits, Change in Stool Character, Coffee Ground Emesis, Constipation, Cramping, Diarrhea, Dyspepsia, Dysphagia, Early Satiety, Excessive Flatus, Fecal Incontinence, Heartburn, Hematemesis, Hematochezia, Loose Stools, Melena, Nausea, Odynophagia, Temesmus, Vomiting, Other - Genitourinary Genitourinary: Urinary Urgency - Reproductive: Female Reproductive:Female: absent: As Per HPI, Amenorrhea, Amenorrhea/ Control, Currently Menstual, Cycle <21 Days, Cycle >35 Days, Cycle Variable, Menses 1-7 Days, Menses >/= 8 Days, Menses Variable, Cycle > 4 Weeks Between, No Menses for 6 Months, Heavy Menses, Light Menses, Normal Menses, Spotting Between Cycles , S/P Hysterectomy, Menopausal, Post Menopausal, Premenarche, Abnormal Vaginal Bleeding, Dysmenorrhea, Dyspareunia, Genital Lesions, Genital Pruritis, Pelvic Pain, Prolapse Symptoms, Sexual Dysfunction, Vaginal Discharge, Vaginal Dryness , Vaginal Odor, Vaginal Pruritis, Other - Menstruation Menstruation: absent: As Per HPI, Amenorrhea, Amenorrhea/ Control, Currently Menstual, Cycle <21 Days, Cycle >35 Days, Cycle Variable, Menses 1-7 Days, Menses >/= 8 Days, Menses Variable, Cycle > 4 Weeks Between, No Menses for 6 Months, Heavy Menses, Light Menses, Normal Menses, Spotting Between Cycles , S/P Hysterectomy, Menopausal, Post Menopausal, Premenarche, Abnormal Vaginal Bleeding, Dysmenorrhea, Other - Musculoskeletal Musculoskeletal: absent: As Per HPI, Abnormal Gait, Arthralgias, Atrophy, Back Pain, Deformity, Joint Swelling, Limited Range of Motion, Loss of Height, Muscle Cramps, Muscle Weakness, Myalgias, Neck Pain, Numbness, Radiating Pain into Limb, Stiffness, Tingling, Other - Neurological Neurological: absent: As Per HPI, Abnormal Gait, Abnormal Hearing, Abnormal Movements, Abnormal Speech, Behavioral Changes, Burning Sensations, Confusion, Convulsions, Disequilibrium, Dizziness, Numbness, Focal Weakness, Frequent Falls , Headaches, Lack of Coordination, Loss of Vision, Memory Loss, Paresthesias, Radicular Pain, Restless Legs, Sensory Deficit, Syncope, Tingling, Tremor, Vertigo, Weakness, Other Visual Disturbances, Other Past Patient History - Infectious Disease Hx of Infectious Diseases: None - Tetanus Immunizations Tetanus Immunization: Unknown - Past Medical History & Family History Past Medical History?: Yes - Past Social History Smoking Status: Former Smoker - CARDIAC Hx Cardiac Disorders: Yes ([place], CAD) Hx Hypercholesterolemia: Yes Hx Hypertension: Yes - NEUROLOGICAL Hx Neurological Disorder: Yes (Peripheral neuropathy) - ENDOCRINE/METABOLIC Hx Diabetes Mellitus Type 1: Yes - MUSCULOSKELETAL/RHEUMATOLOGICAL Hx Arthritis: Yes Hx Degenerative Joint Disease: Yes Hx Falls: No Hx Herniated Disk: Yes Hx Spinal Stenosis: Yes - GASTROINTESTINAL Hx Gastrointestinal Disorders: Yes (Gallstones, Chronic wound in abdomen, colitis) Hx Diverticulitis: Yes Hx Gastroesophageal Reflux: Yes - GENITOURINARY/GYNECOLOGICAL Hx Genitourinary Disorders: Yes (Cystoscopy with bladder biopsy) Hx Urinary Tract Infection: Yes - PSYCHIATRIC Hx Substance Use: No - SURGICAL HISTORY Hx Surgeries: Yes (Multiple hernia repairs with mesh removal) Hx Cardiac Catheterization: Yes Hx Coronary Stent: Yes ([id number]) Hx Hysterectomy: Yes Hx Joint Replacement: Yes (Right knee replacement) - ANESTHESIA Hx Anesthesia: Yes Hx Anesthesia Reactions: No Hx Malignant Hyperthermia: No Meds Allergies/Adverse Reactions: Allergies Allergy/AdvReac Type Severity Reaction Status Date / Time acetaminophen [From Percocet] Allergy Intermediate VOMITING Verified 11/23/15 11 :04 bacitracin Allergy Intermediate REDNESS Verified 11/23/15 11:04 oxycodone HCl [From Percocet] Allergy Intermediate VOMITING Verified 11/23/15 11 :04 Penicillins Allergy Intermediate RASH Verified 11/23/15 11:04 shellfish derived Allergy Intermediate RASH Verified 11/23/15 11:04 - Medications Medications: Current Medications Aspirin (Ecotrin) 81 mg PO DAILY [facility] Last Admin: 10/20/16 11:11 Dose: Not Given Atorvastatin Calcium (Lipitor) 80 mg PO DIN [facility] Clopidogrel Bisulfate (Plavix) 75 mg PO DAILY [facility] Last Admin: 10/20/16 11:18 Dose: Not Given Enoxaparin Sodium (Lovenox) 40 mg SC DAILY [facility] PRN Reason: Protocol Last Admin: 10/20/16 11:14 Dose: Not Given Famotidine (Pepcid) 20 mg PO BID [facility] Last Admin: 10/20/16 11:16 Dose: 20 mg Gabapentin (Neurontin) 300 mg PO TID [facility] PRN Reason: Protocol Last Admin: 10/20/16 11:16 Dose: 300 mg Sodium Chloride (Sodium Chloride 0.9%) 1,000 mls @ 100 mls/hr IV .Q10H [facility] Stop: 10/20/16 16:00 Last Admin: 10/20/16 11:19 Dose: 100 mls/hr Insulin Detemir (Levemir) 60 unit SC HS [facility] Insulin Lispro Protam/Lispro Human (Humalog Mix 75/25) 60 units SC ACB [facility] Isosorbide Mononitrate (Imdur) 60 mg PO DAILY [facility] Last Admin: 10/20/16 11:12 Dose: 60 mg Metoprolol Tartrate (Lopressor) 25 mg PO BID [facility] Last Admin: 10/20/16 11:13 Dose: 25 mg Montelukast Sodium (Singulair) 10 mg PO [facility] Morphine Sulfate (Morphine) 2 mg IVP Q4H PRN PRN Reason: Pain, severe (8-10) Ondansetron HCl (Zofran Inj) 4 mg IVP Q6H PRN PRN Reason: Nausea/Vomiting Ramipril (Altace) 10 mg PO BID [facility] Last Admin: 10/20/16 11:10 Dose: 10 mg Physical Exam - Constitutional Appears: Well - Head Exam Head Exam: ATRAUMATIC, NORMAL INSPECTION - Eye Exam Eye Exam: EOMI, PERRL Pupil Exam: NORMAL ACCOMODATION - ENT Exam ENT Exam: Mucous Membranes Moist, Normal Exam - Respiratory Exam Respiratory Exam: Clear to Auscultation Bilateral, NORMAL BREATHING PATTERN - Cardiovascular Exam Cardiovascular Exam: REGULAR RHYTHM - GI/Abdominal Exam GI & Abdominal Exam: Normal Bowel Sounds (R groin sheath in place ) - Extremities Exam Extremities exam: Positive for: normal inspection Results - Vital Signs Recent Vital Signs: Last Vital Signs Temp 98 F 10/20/16 06:00 Pulse 97 H 10/20/16 11:13 Resp 11 L 10/20/16 09:30 BP 140/70 10/20/16 11:13 Pulse Ox 88 L 10/20/16 09:30 - Labs Result Diagrams: 10/20/16 06:15 10/20/16 10:30 Labs: Laboratory Results - last 24 hr 10/20/16 10/20/16 10/20/16 02:00 02:00 02:00 WBC RBC Hgb Hct MCV MCH MCHC RDW Plt Count MPV Gran % Lymph % (Auto) [place] % (Auto) Eos % (Auto) Baso % (Auto) Gran # Lymph # [place] # Eos # Baso # PT 10.5 INR 0.97 APTT 38.9 H pO2 43 VBG pH 7.30 L VBG pCO2 54.0 VBG HCO3 26.6 VBG Total CO2 28.3 H VBG O2 Sat (Calc) 83.7 H VBG Base Excess -0.7 L VBG Potassium 5.1 Sodium 128.0 L Chloride 96.0 L Glucose 339 H Lactate 2.1 FiO2 21.0 Potassium Carbon Dioxide Anion Gap BUN Creatinine Est GFR ( Amer) Est GFR (Non-Af Amer) POC Glucose (mg/dL) Random Glucose Hemoglobin A1c Calcium Phosphorus Magnesium Total Bilirubin AST ALT Alkaline Phosphatase Troponin I 0.31 H* D Total Protein Albumin Globulin Albumin/Globulin Ratio Triglycerides Cholesterol LDL Cholesterol Direct HDL Cholesterol TSH 3rd Generation Venous Blood Potassium 5.1 10/20/16 10/20/16 10/20/16 06:15 06:15 06:15 WBC 14.2 H RBC 5.05 Hgb 12.8 Hct 40.3 MCV 79.8 L MCH 25.3 MCHC 31.8 RDW 15.9 H Plt Count 309 MPV 9.3 Gran % 93.3 H Lymph % (Auto) 5.9 L [place] % (Auto) 0.6 L Eos % (Auto) 0.1 L Baso % (Auto) 0.1 Gran # 13.22 H Lymph # 0.8 L [place] # 0.1 Eos # 0.0 Baso # 0.01 PT INR APTT pO2 VBG pH VBG pCO2 VBG HCO3 VBG Total CO2 VBG O2 Sat (Calc) VBG Base Excess VBG Potassium Sodium 128 L Chloride 93 L Glucose Lactate FiO2 Potassium 5.1 H Carbon Dioxide 24 Anion Gap 16 BUN 23 H Creatinine 1.0 Est GFR ( Amer) > 60 Est GFR (Non-Af Amer) 54 POC Glucose (mg/dL) Random Glucose 429 H* D Hemoglobin A1c 9.6 H D Calcium 8.8 Phosphorus Magnesium Total Bilirubin 0.4 AST 23 ALT 18 Alkaline Phosphatase 136 H Troponin I 0.26 H* Total Protein 7.0 Albumin 3.7 Globulin 3.3 Albumin/Globulin Ratio 1.1 Triglycerides 141 Cholesterol 171 LDL Cholesterol Direct 130 H HDL Cholesterol 31 TSH 3rd Generation Venous Blood Potassium 10/20/16 10/20/16 10/20/16 06:15 07:18 10:30 WBC RBC Hgb Hct MCV MCH MCHC RDW Plt Count MPV Gran % Lymph % (Auto) [place] % (Auto) Eos % (Auto) Baso % (Auto) Gran # Lymph # [place] # Eos # Baso # PT INR APTT pO2 39 VBG pH 7.15 L* VBG pCO2 67.0 H* VBG HCO3 23.3 VBG Total CO2 25.4 VBG O2 Sat (Calc) 70.8 H VBG Base Excess -6.7 L VBG Potassium 6.2 H* Sodium 141.0 Chloride 86.0 L Glucose 427 H* D Lactate 2.5 H FiO2 21.0 Potassium Carbon Dioxide Anion Gap BUN Creatinine Est GFR ( Amer) Est GFR (Non-Af Amer) POC Glucose (mg/dL) 426 H* Random Glucose Hemoglobin A1c Calcium Phosphorus Magnesium Total Bilirubin AST ALT Alkaline Phosphatase Troponin I Total Protein Albumin Globulin Albumin/Globulin Ratio Triglycerides Cholesterol LDL Cholesterol Direct HDL Cholesterol TSH 3rd Generation 1.62 Venous Blood Potassium 6.2 H* 10/20/16 10/20/16 10:30 11:38 WBC RBC Hgb Hct MCV MCH MCHC RDW Plt Count MPV Gran % Lymph % (Auto) [place] % (Auto) Eos % (Auto) Baso % (Auto) Gran # Lymph # [place] # Eos # Baso # PT INR APTT pO2 VBG pH VBG pCO2 VBG HCO3 VBG Total CO2 VBG O2 Sat (Calc) VBG Base Excess VBG Potassium Sodium 128 L Chloride 94 L Glucose Lactate FiO2 Potassium 5.5 H Carbon Dioxide 22 Anion Gap 18 BUN 22 H Creatinine 0.9 Est GFR ( Amer) > 60 Est GFR (Non-Af Amer) > 60 POC Glucose (mg/dL) 362 H Random Glucose 410 H* Hemoglobin A1c Calcium 8.5 Phosphorus 4.1 Magnesium 2.0 Total Bilirubin AST ALT Alkaline Phosphatase Troponin I Total Protein Albumin Globulin Albumin/Globulin Ratio Triglycerides Cholesterol LDL Cholesterol Direct HDL Cholesterol TSH 3rd Generation Venous Blood Potassium Assessment & Plan - Assessment and Plan (Free Text) Assessment: 71 y/o F w/ HiGh MICHAEL score NSTEMI s/p Cardiac cath w/ 2 JUNIOR LAD and CIRCFLEX Was given heparin and R gorin sheath in place , removal and stasis to be achieved by cath team. On asprin, plavix, statin, b-blockers and aceI as tolerated. Repeat labs to be drawn. 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 Blood and Urine cx to be drawn for elevated WBC and hx of multiple UTI. On empiric Rocephin currently and IV fluids. COPD hx on Inhalers w/ PRN beta agonists PRN DVT P w/ SCD for now cc time 55 min
[2016-10-20 13:00] LABS: BLOOD UREA NITROGEN 21 mg/dL (7-21); CALCIUM 8.3 mg/dL (8.4-10.5); GFR AFRICAN-AMERICAN > 60; GFR NON-AFRICAN AMERICAN > 60
[2016-10-20] MEDS ORDERED: Sodium Chloride 0.9% 2,000 ML IV STA (13:14)
[2016-10-20 13:53] LABS: VENOUS BLOOD GAS BASE EXCESS -6.4 mmol/L (0.0-2.0); VENOUS BLOOD GAS PO2 116 mm/Hg (30-55)
[2016-10-20 13:57] LABS: VENOUS BLOOD PH 7.14 (7.32-7.43)
--- NOTE | 2016-10-20 14:04 | US ---
HISTORY: Leg pain and swelling. Evaluate for DVT PHYSICIAN(S): Taurus Espino MD. TECHNIQUE: Duplex sonography and color-flow Doppler with graded compression were used to evaluate the deep venous systems of both lower extremities. The exam is limited by body habitus and edema. FINDINGS: The visualized deep venous systems of both lower extremities are sonographically normal and compressible. Normal wave forms and augmentation are seen. There is no sonographic evidence for deep venous thrombosis in the visualized segments of both lower extremities. IMPRESSION: No sonographic evidence for deep venous thrombosis in the visualized segments of both lower extremities. Limited study.
--- NOTE | 2016-10-20 14:08 | CARDCATH ---
PROCEDURE DATE: 10/20/2016 The patient to a 71-year-old woman who presented last night with chest pain. She was found to have elevated troponins. This morning, the patient complained of substernal pressure pain upon awakening. EKG showed no changes. The troponin was elevated. The patient was brought down to the supervisor laboratory for an emergency procedure. PROCEDURE: Left heart catheterization with coronary angiography and left ventriculogram followed by PTCA and stent of LAD and circumflex artery. The right femoral artery was cannulated with a 6-[place] sheath. There were no complications. Findings on catheterization revealed left ventricle that revealed an inferobasal hypokinetic area with an overall ejection fraction of 50%. Her coronary anatomy revealed a right dominant circulation. The RCA revealed diffuse atherosclerosis throughout its tree without critical lesions. The left main artery was free of significant disease. The proximal LAD revealed a 70-80% stenosis which was an eccentric in nature. The rest of the vessel revealed diffuse atherosclerosis without critical lesions. The circumflex artery revealed a 99% stenosis at its takeoff and involved critical lesions throughout the obtuse marginal branch. The AV groove branch and the second obtuse marginal branch revealed diffuse atherosclerosis without critical lesions. After extensive thought process of treating her with surgery versus a high-risk angioplasty, we elected to go with high-risk angioplasty given the patient's marked morbidity with coronary artery bypass surgery. The patient was started on intravenous Angiomax. The guiding catheter was placed in the ostium of the left main artery. An ATW wire was used to cross the lesion in the proximal LAD. A 3.5 x 12 mm drug-eluting stent was placed and deployed in the proximal LAD lesion with an excellent result with no residual stenosis and MICHAEL 3 flow. The wire was then brought back and placed into the proximal circumflex into the obtuse marginal branch. A 2.0 balloon followed by 2.5 balloon was utilized to predilate the entire lesion length. A 2.75 x 22 mm drug-eluting stent was placed and deployed extending from the ostium of the circumflex into the proximal portion of the obtuse marginal branch. Repeat coronary angiography revealed an excellent result with no residual stenosis and MICHAEL 3 flow. Manual compression was used to close the femoral artery site. The patient tolerated the procedure well. In summary, the procedure was successful for an emergency PTCA and stent of a proximal LAD stenoses as well as the proximal circumflex stenoses extending into the obtuse marginal branch. Both angioplasties were done with drug-eluting stents. The LV function was preserved with inferobasal wall hypokinesis. Given these findings, the patient will need to remain on aspirin indefinitely and Plavix for at least 1 year and undergo a strict cardiac risk reduction program. Taurus Jacques MD
[2016-10-20 14:28] LABS: ARTERIAL BLOOD GAS HCO3 21.9 mmol/L (21-28); ARTERIAL BLOOD GAS PCO2 50 mm/Hg (35-45); ARTERIAL BLOOD GAS PH 7.25 (7.35-7.45); ARTERIAL BLOOD GAS TCO2 23.4 mmol.L (22-28)
[2016-10-20] MEDS: Insulin Lispro (humaLOG) MEDIUM Coverage SC SCH ×3 (14:56→21:44)
[2016-10-20] MEDS: Morphine 2 mg/ml ISec IVP PRN (15:01)
--- NOTE | 2016-10-20 15:05 | CARD ---
APPROVED REPORT EKG Measurement Heart [id number] <Conclusion> Normal sinus rhythm STTW changes c/w ischemia Prolonged QTc
[2016-10-20] MEDS: Insulin Detemir 100 units/ml Vial (Levemir) SC SCH (21:45)
[2016-10-21 06:00] LABS: HEMOGLOBIN 10.6 gm/dL (12.0-16.0); MEAN CELL VOLUME 80.9 fL (80.0-105.0); MEAN CORPUSCULAR HEMOGLOBIN 25.1 pg (25.0-35.0); MEAN PLATELET VOLUME 9.2 fl (7.0-11.0); PLATELET COUNT 241 10^3/uL (120.0-450.0); RBC 4.23 10^6/uL (3.5-6.1); RED CELL DISTRIBUTION WIDTH 15.9 % (11.5-14.5); WHITE BLOOD COUNT 20.7 10^3/ul (4.5-11.0)
[2016-10-21 06:19] LABS: ALB/GLOB RATIO 0.9 (1.1-1.8); CALCIUM 8.5 mg/dL (8.4-10.5)
[2016-10-21] MEDS: Morphine 2 mg/ml ISec IVP PRN (06:28)
--- NOTE | 2016-10-21 06:57 | CP.PCM.PN ---
Subjective - Date & Time of Evaluation Date of Evaluation: 10/21/16 Time of Evaluation: 06:57 - Subjective Subjective: Medicine Progress Note Patient seen and examined at bedside. There were no acute overnight events. This am she reports having some chest pain that is located substernal and radiates to her back. She has been having this pain since prior to the cath. She reports Morphine improves her pain. No EKG changes were seen. She is also complaining of chills and diffuse abdominal pain. She denies SOB, n/v/d, numbness/tingling, dysuria or hematuria. Objective - Vital Signs/Intake and Output Vital Signs (last 24 hours): Temp Pulse Resp BP Pulse Ox 97.6 F 76 11 L 101/54 L 90 L 10/21/16 01:25 10/21/16 06:45 10/21/16 06:45 10/21/16 06:10 10/21/16 05:45 Intake and Output: 10/20/16 10/21/16 18:59 06:59 Intake Total 1422 Output Total 1000 Balance 422 - Medications Medications: Current Medications Aspirin (Ecotrin) 81 mg PO DAILY [facility] Last Admin: 10/20/16 11:11 Dose: Not Given Atorvastatin Calcium (Lipitor) 80 mg PO DIN [facility] Last Admin: 10/20/16 17:53 Dose: 80 mg Clopidogrel Bisulfate (Plavix) 75 mg PO DAILY [facility] Last Admin: 10/20/16 11:18 Dose: Not Given Enoxaparin Sodium (Lovenox) 40 mg SC DAILY [facility] PRN Reason: Protocol Last Admin: 10/20/16 11:14 Dose: Not Given Famotidine (Pepcid) 20 mg PO BID [facility] Last Admin: 10/20/16 17:54 Dose: 20 mg Gabapentin (Neurontin) 300 mg PO TID [facility] PRN Reason: Protocol Last Admin: 10/20/16 17:54 Dose: 300 mg Insulin Detemir (Levemir) 60 unit SC HS [facility] Last Admin: 10/20/16 21:45 Dose: 60 unit Insulin Human Lispro (Humalog Med) 0 units SC ACHS [facility] PRN Reason: Protocol Last Admin: 10/20/16 21:44 Dose: 4 units Insulin Lispro Protam/Lispro Human (Humalog Mix 75/25) 60 units SC ACB [facility] Isosorbide Mononitrate (Imdur) 60 mg PO DAILY [facility] Last Admin: 10/20/16 11:12 Dose: 60 mg Metoprolol Tartrate (Lopressor) 25 mg PO BID [facility] Last Admin: 10/20/16 17:52 Dose: 25 mg Montelukast Sodium (Singulair) 10 mg PO HS [facility] Last Admin: 10/20/16 21:48 Dose: 10 mg Morphine Sulfate (Morphine) 2 mg IVP Q4H PRN PRN Reason: Pain, severe (8-10) Last Admin: 10/21/16 06:28 Dose: 2 mg Ondansetron HCl (Zofran Inj) 4 mg IVP Q6H PRN PRN Reason: Nausea/Vomiting Ramipril (Altace) 10 mg PO BID [facility] Last Admin: 10/20/16 11:10 Dose: 10 mg - Labs Labs: 10/21/16 05:30 10/21/16 05:30 PT 10.5 Seconds (9.9-11.8) 10/20/16 02:00 INR 0.97 (0.93-1.08) 10/20/16 02:00 APTT 38.9 Seconds (23.7-30.8) H 10/20/16 02:00 - Constitutional Appears: No Acute Distress - Head Exam Head Exam: ATRAUMATIC, NORMAL INSPECTION, NORMOCEPHALIC - Eye Exam Eye Exam: Normal appearance, PERRL Pupil Exam: NORMAL ACCOMODATION, PERRL - ENT Exam ENT Exam: Mucous Membranes Moist - Neck Exam Neck Exam: Full ROM, Normal Inspection - Respiratory Exam Respiratory Exam: Clear to Ausculation Bilateral, NORMAL BREATHING PATTERN. absent: Decreased Breath Sounds, Rales, Rhonchi, Wheezes - Cardiovascular Exam Cardiovascular Exam: REGULAR RHYTHM, +S1, +S2. absent: Gallop, Rubs, Murmur Additional comments: Chronic access port on R chest - dry, no drainage - GI/Abdominal Exam GI & Abdominal Exam: Soft, Normal Bowel Sounds. absent: Rigid, Tenderness, Mass , Rebound - Extremities Exam Extremities Exam: Normal Inspection, Pedal Edema. absent: Calf Tenderness Additional comments: Cath site on L groin has dressing in place- clean and dry - Neurological Exam Neurological Exam: Alert, Awake, CN II-XII Intact, Oriented x3 - Psychiatric Exam Psychiatric exam: Normal Affect, Normal Mood - Skin Skin Exam: Dry, Intact, Normal Color, Warm Assessment and Plan - Assessment and Plan (Free Text) Assessment: This is a 71Y F with PMH IDDM, CAD s/p 4 stents, diverticulitis, colitis admitted for unstable NSTEMI. She had cardiac cath yesterday with [address] in the proximal LAD and proximal circumflex. Plan: 1. NSTEMI - s/p Cardiac cath with 2 drug eluting stents (in LAD and L circumflex) - Echo showed EF 56% with normal LV function - Continue ASA, Plavix, Lipitor, Imdur, Lopressor and Altace - EKG this am did not show changes - Morphine prn - Cardiology consulted- recs appreciated 2. Leukocytosis - secondary to colitis seen on CT versus reactive from cath - Pt noted to have chronic port for access 9 yrs old- Will draw BC from port - Surgery consulted for port removal - Lactate 1.5, first BC negative- Will repeat - Pt afebrile - ID consulted - recs appreciated - Will check U/A, CXR, procalcitonin - Flagyl added for colitis 3. IDDM - HgbA1c 9.6 - Levemir 60U HS - Novolog 60U before meals - ISS - BGM ACHS 4. HLD - LDL: 130 - Continue Lipitor 5. HTN - Continue Lopressor, Altace and Imdur 6. Hyponatremia and Hypokalemia - K: 5.4, Na: 128 - Given Kayexylate PO once - Started on NS@100 for hyponatremia - Continue to monitor BP and electrolytes GI ppx: Pepcid DVT ppx: Lovenox Dispo: PT eval pending. As per cardiology pt will need to be indefinitely on ASA and on Plavix for at least 1 yr. Case seen, reviewed and discussed with Dr. Penelope Mcmanus PGY2
[2016-10-21] MEDS: Insulin Lispro (humaLOG) MEDIUM Coverage SC SCH (08:38)
[2016-10-21] MEDS ORDERED: Oxycodone/Acetaminophen 5/325 mg Tab PO PRN (08:50)
[2016-10-21] MEDS ORDERED: Sod Polystyrene Sulf 15 gm/60 ml Oral Susp PO ONE (08:50)
[2016-10-21 09:03] LABS: BAND 2 % (0-2); LYMPHOCYTE 8 % (22.0-35.0); MONOCYTE 3 % (1.0-6.0); NEUTROPHIL 87 % (50.0-70.0); PLATELET ESTIMATE NORMAL (NORMAL)
[2016-10-21] MEDS: Insulin Lispro (humaLOG) MIX 75/25(10 ml) SC SCH (09:14)
[2016-10-21] MEDS: Enoxaparin 40 mg Syringe SC SCH (09:15)
[2016-10-21] MEDS: Morphine 4 mg/ml ISec IVP PRN ×4 (09:16→22:26)
[2016-10-21] MEDS: Sodium Chloride 0.9% 1,000 ML IV SCH (09:29)
--- NOTE | 2016-10-21 09:59 | CARD ---
APPROVED REPORT EXAM: Two-dimensional and M-mode echocardiogram with Doppler and color Doppler. Other Information Quality : AverageRhythm : INDICATION Chest Pain 2D DIMENSIONS Left Atrium (2D)4.5 (1.6-4.0cm)IVSd1.1 (0.7-1.1cm) LVDd4.4 (3.9-5.9cm)PWd1.1 (0.7-1.1cm) LVDs3.1 (2.5-4.0cm)FS (%) 29.3 % LVEF (%)56.0 (>50%) M-Mode DIMENSIONS Aortic Root2.70 (2.2-3.7cm)Aortic Cusp Exc.1.10 (1.5-2.0cm) Aortic Valve AoV Peak Fuljlpeq862.0cm/sAoV VTI43.4cmLVOT Peak Cutaikkp127.0cm/s LVOT VTI28.50cm Mitral Valve MV E Usfusndq28.6cm/sMV A Shsucxna48.3cm/sE/A ratio0.6 TDI Lateral E' Peak V9.36cm/sMedial E' Peak V5.26cm/sE/Lateral E'5.0 E/Medial E'8.9 Pulmonary Valve PV Peak Fqvdwdjx585.0cm/sPV Peak Grad.6mmHg Tricuspid Valve TR Peak Opmvmszl055zl/sRAP [id number] Peak Gr.13mmHg [id number] LEFT VENTRICLE The left ventricle is normal size. There is normal left ventricular wall thickness. The left ventricular function is normal. The left ventricular ejection fraction is within the normal range. There is normal LV segmental wall motion. RIGHT VENTRICLE The right ventricle is normal size. ATRIA The left atrium size is normal. The right atrium size is normal. The interatrial septum is intact with no evidence for an atrial septal defect. AORTIC VALVE The aortic valve is normal in structure. MITRAL VALVE The mitral valve is normal in structure. Mitral regurgitation is trace. TRICUSPID VALVE The tricuspid valve is normal in structure. There is trace tricuspid regurgitation. PULMONIC VALVE The pulmonic valve is not well visualized. GREAT VESSELS The aortic root is normal in size. PERICARDIAL EFFUSION There is no pericardial effusion. <Conclusion> The left ventricle is normal size. There is normal left ventricular wall thickness. There is normal left ventricular wall thickness.
[2016-10-21] MEDS ORDERED: cefTRIAXone 1 gm 1 GM/100 ML BAG IVPB SCH (11:00)
--- NOTE | 2016-10-21 11:11 | CARD ---
APPROVED REPORT EKG Measurement Heart [id number] <Conclusion> Normal sinus rhythm STTW changes c/w ischemia No change
[2016-10-21] MEDS ORDERED: Morphine 2 mg/ml ISec IVP PRN (11:49)
--- NOTE | 2016-10-21 11:50 | CP.PCM.CON ---
History of Present Illness - History of Present Illness History of Present Illness: 71 year old female with PMH of diverticulitis and colitis, history of abdominal hernia S/P surgery (? colocutaneous fistula), DM, obesity with BMI 40, CAD S/P PCI, S/P hysterectomy, S/P appendectomy, S/P port placement on the right anterior chest wall was brought in to [facility] because of chest pain and the patient was found to have NSTEMI. The patient underwent cardiac cath and PCI. She is now in the ICU for closer observation and the patient is found to have persistent leukocytosis. Infectious diseases consult is requested to further evaluate and manage. Currently the patient is comfortable on a chair , but complains that there is some drainage from the abdominal area where she had previous Surgery for an abdominal hernia. She denies fever or chills, had chest pain this morning relieved by Morphine, no SOB at rest, no diarrhea, no dysuria. Review of Systems - Review of Systems All systems: reviewed and no additional remarkable complaints except (as per HPI ) Past Patient History - Infectious Disease Hx of Infectious Diseases: None - Tetanus Immunizations Tetanus Immunization: Unknown - Past Medical History & Family History Past Medical History?: Yes - Past Social History Smoking Status: Former Smoker - CARDIAC Hx Cardiac Disorders: Yes (DC, CAD) Hx Hypercholesterolemia: Yes Hx Hypertension: Yes - NEUROLOGICAL Hx Neurological Disorder: Yes (Peripheral neuropathy) - ENDOCRINE/METABOLIC Hx Diabetes Mellitus Type 1: Yes - MUSCULOSKELETAL/RHEUMATOLOGICAL Hx Arthritis: Yes Hx Degenerative Joint Disease: Yes Hx Falls: No Hx Herniated Disk: Yes Hx Spinal Stenosis: Yes - GASTROINTESTINAL Hx Gastrointestinal Disorders: Yes (Gallstones, Chronic wound in abdomen, colitis) Hx Diverticulitis: Yes Hx Gastroesophageal Reflux: Yes - GENITOURINARY/GYNECOLOGICAL Hx Genitourinary Disorders: Yes (Cystoscopy with bladder biopsy) Hx Urinary Tract Infection: Yes - PSYCHIATRIC Hx Substance Use: No - SURGICAL HISTORY Hx Surgeries: Yes (Multiple hernia repairs with mesh removal) Hx Cardiac Catheterization: Yes Hx Coronary Stent: Yes ([id number]) Hx Hysterectomy: Yes Hx Joint Replacement: Yes (Right knee replacement) - ANESTHESIA Hx Anesthesia: Yes Hx Anesthesia Reactions: No Hx Malignant Hyperthermia: No Meds Allergies/Adverse Reactions: Allergies Allergy/AdvReac Type Severity Reaction Status Date / Time acetaminophen [From Percocet] Allergy Intermediate VOMITING Verified 09/06/16 11 :04 bacitracin Allergy Intermediate REDNESS Verified 11/23/15 11:04 oxycodone HCl [From Percocet] Allergy Intermediate VOMITING Verified 11/23/15 11 :04 Penicillins Allergy Intermediate RASH Verified 11/23/15 11:04 shellfish derived Allergy Intermediate RASH Verified 11/23/15 11:04 - Medications Medications: Current Medications Aspirin (Ecotrin) 81 mg PO DAILY [facility] Last Admin: 10/20/16 11:11 Dose: Not Given Atorvastatin Calcium (Lipitor) 80 mg PO DIN [facility] Last Admin: 10/20/16 17:53 Dose: 80 mg Clopidogrel Bisulfate (Plavix) 75 mg PO DAILY [facility] Last Admin: 10/20/16 11:18 Dose: Not Given Docusate Sodium (Colace) 100 mg PO DAILY [facility] Enoxaparin Sodium (Lovenox) 40 mg SC DAILY [facility] PRN Reason: Protocol Last Admin: 10/20/16 11:14 Dose: Not Given Famotidine (Pepcid) 20 mg PO BID [facility] Last Admin: 10/20/16 17:54 Dose: 20 mg Gabapentin (Neurontin) 300 mg PO TID [facility] PRN Reason: Protocol Last Admin: 10/20/16 17:54 Dose: 300 mg Insulin Detemir (Levemir) 60 unit SC HS [facility] Last Admin: 10/20/16 21:45 Dose: 60 unit Insulin Human Regular (Humulin R High) 0 units SC [facility] PRN Reason: Protocol Insulin Lispro Protam/Lispro Human (Humalog Mix 75/25) 60 units SC ACB [facility] Isosorbide Mononitrate (Imdur) 60 mg PO DAILY [facility] Last Admin: 10/20/16 11:12 Dose: 60 mg Metoprolol Tartrate (Lopressor) 25 mg PO BID [facility] Last Admin: 10/20/16 17:52 Dose: 25 mg Montelukast Sodium (Singulair) 10 mg PO HS [facility] Last Admin: 10/20/16 21:48 Dose: 10 mg Morphine Sulfate (Morphine) 4 mg IVP Q4H PRN PRN Reason: Pain, severe (8-10) Ondansetron HCl (Zofran Inj) 4 mg IVP Q6H PRN PRN Reason: Nausea/Vomiting Oxycodone/Acetaminophen (Percocet 5/325 Mg Tab) 1 tab PO Q4H PRN PRN Reason: Pain, moderate (4-7) Stop: 10/24/16 08:51 Ramipril (Altace) 10 mg PO BID [facility] Last Admin: 10/20/16 11:10 Dose: 10 mg Physical Exam - Constitutional Appears: Non-toxic, No Acute Distress - Head Exam Head Exam: NORMAL INSPECTION - ENT Exam ENT Exam: Mucous Membranes Moist - Neck Exam Neck exam: Negative for: Lymphadenopathy, Meningismus - Respiratory Exam Respiratory Exam: Decreased Breath Sounds - Cardiovascular Exam Cardiovascular Exam: +S1, +S2 - GI/Abdominal Exam GI & Abdominal Exam: Soft. absent: Tenderness Additional comments: left lower quadrant area (site of previous abdominal surgery) with area of drainage which has no anaerobic smell Results - Vital Signs Recent Vital Signs: Last Vital Signs Temp 97.6 F 10/21/16 01:25 Pulse 76 10/21/16 06:45 Resp 11 L 10/21/16 06:45 BP 101/54 L 10/21/16 06:10 Pulse Ox 90 L 10/21/16 05:45 - Labs Result Diagrams: 10/21/16 05:30 10/21/16 05:30 Labs: Laboratory Results - last 24 hr 10/20/16 10/20/16 10/20/16 06:15 10:30 10:30 WBC RBC Hgb Hct MCV MCH MCHC RDW Plt Count MPV Neutrophils % (Manual) Band Neutrophils % Lymphocytes % (Manual) Monocytes % (Manual) Platelet Evaluation pCO2 pO2 39 HCO3 ABG pH ABG Total CO2 ABG O2 Saturation ABG Base Excess ABG Potassium VBG pH 7.15 L* VBG pCO2 67.0 H* VBG HCO3 23.3 VBG Total CO2 25.4 VBG O2 Sat (Calc) 70.8 H VBG Base Excess -6.7 L VBG Potassium 6.2 H* Sodium 141.0 128 L Chloride 86.0 L 94 L Glucose 427 H* D Lactate 2.5 H FiO2 21.0 Potassium 5.5 H Carbon Dioxide 22 Anion Gap 18 BUN 22 H Creatinine 0.9 Est GFR ( Amer) > 60 Est GFR (Non-Af Amer) > 60 POC Glucose (mg/dL) Random Glucose 410 H* Hemoglobin A1c 9.6 H D Calcium 8.5 Phosphorus 4.1 Magnesium 2.0 Total Bilirubin AST ALT Alkaline Phosphatase Total Protein Albumin Globulin Albumin/Globulin Ratio Arterial Blood Potassium Venous Blood Potassium 6.2 H* 10/20/16 10/20/16 10/20/16 11:38 12:30 12:30 WBC RBC Hgb Hct MCV MCH MCHC RDW Plt Count MPV Neutrophils % (Manual) Band Neutrophils % Lymphocytes % (Manual) Monocytes % (Manual) Platelet Evaluation pCO2 pO2 116 H HCO3 ABG pH ABG Total CO2 ABG O2 Saturation ABG Base Excess ABG Potassium VBG pH 7.14 L* VBG pCO2 70.0 H* VBG HCO3 23.8 VBG Total CO2 VBG O2 Sat (Calc) 99.2 H VBG Base Excess -6.4 L VBG Potassium Sodium 129 L Chloride 94 L Glucose Lactate FiO2 Potassium 5.0 Carbon Dioxide 25 Anion Gap 15 BUN 21 Creatinine 0.9 Est GFR ( Amer) > 60 Est GFR (Non-Af Amer) > 60 POC Glucose (mg/dL) 362 H Random Glucose 398 H* Hemoglobin A1c Calcium 8.3 L Phosphorus Magnesium Total Bilirubin AST ALT Alkaline Phosphatase Total Protein Albumin Globulin Albumin/Globulin Ratio Arterial Blood Potassium Venous Blood Potassium 10/20/16 10/20/16 10/20/16 14:20 16:14 21:21 WBC RBC Hgb Hct MCV MCH MCHC RDW Plt Count MPV Neutrophils % (Manual) Band Neutrophils % Lymphocytes % (Manual) Monocytes % (Manual) Platelet Evaluation pCO2 50 H pO2 82.0 HCO3 21.9 ABG pH 7.25 L ABG Total CO2 23.4 ABG O2 Saturation 98.0 ABG Base Excess -5.6 L ABG Potassium 5.3 H VBG pH VBG pCO2 VBG HCO3 VBG Total CO2 VBG O2 Sat (Calc) VBG Base Excess VBG Potassium Sodium 141.0 Chloride 90.0 L Glucose 427 H* Lactate 1.5 FiO2 32.0 Potassium Carbon Dioxide Anion Gap BUN Creatinine Est GFR ( Amer) Est GFR (Non-Af Amer) POC Glucose (mg/dL) 382 H 421 H* Random Glucose Hemoglobin A1c Calcium Phosphorus Magnesium Total Bilirubin AST ALT Alkaline Phosphatase Total Protein Albumin Globulin Albumin/Globulin Ratio Arterial Blood Potassium 5.3 H Venous Blood Potassium 10/21/16 10/21/16 10/21/16 05:30 05:30 07:44 WBC 20.7 H D RBC 4.23 Hgb 10.6 L Hct 34.2 L MCV 80.9 MCH 25.1 MCHC 31.0 RDW 15.9 H Plt Count 241 MPV 9.2 Neutrophils % (Manual) 87 H Band Neutrophils % 2 Lymphocytes % (Manual) 8 L Monocytes % (Manual) 3 Platelet Evaluation Normal pCO2 pO2 HCO3 ABG pH ABG Total CO2 ABG O2 Saturation ABG Base Excess ABG Potassium VBG pH VBG pCO2 VBG HCO3 VBG Total CO2 VBG O2 Sat (Calc) VBG Base Excess VBG Potassium Sodium 128 L Chloride 96 L Glucose Lactate FiO2 Potassium 5.4 H Carbon Dioxide 25 Anion Gap 12 BUN 30 H Creatinine 1.1 Est GFR ( Amer) 59 Est GFR (Non-Af Amer) 49 POC Glucose (mg/dL) 343 H Random Glucose 368 H* Hemoglobin A1c Calcium 8.5 Phosphorus Magnesium Total Bilirubin 0.3 AST 19 ALT 21 Alkaline Phosphatase 92 Total Protein 6.2 Albumin 3.0 Globulin 3.2 Albumin/Globulin Ratio 0.9 L Arterial Blood Potassium Venous Blood Potassium Assessment & Plan - Assessment and Plan (Free Text) Plan: Assessment Systemic Inflammatory Response Syndrome, consider due to NSTEMI Possible mild sigmoid diverticulitis history of diverticulitis and colitis history of abdominal hernia S/P surgery (? colocutaneous fistula) DM obesity with BMI 40 CAD S/P PCI S/P hysterectomy S/P appendectomy S/P port placement on the right anterior chest wall Plan Will order Bactroban ointment for the previous surgical site; since there is possible mild diverticultis, patient may be started on Flagyl with or without Azactam will monitor clinically Would suggest Surgical evaluation of the previous site of surgery in the abdomen
[2016-10-21] MEDS: Insulin Reg-HIGH-Coverage SC SCH ×3 (11:52→21:48)
--- NOTE | 2016-10-21 12:36 | CP.CCUPN ---
CCU Subjective - Physician Review Events Since Last Encounter (Free Text): 10/21/16 12:32 71 y/o F s/p Cardiac cath who had no new events overnight Feels better but does have some residual chest pain . CCU Objective - Vital Signs / Intake & Output Vital Signs (Last 4 hours): Vital Signs Pulse BP 10/21/16 09:15 80 123/56 L Intake and Output (Last 8hrs): Intake & Output 10/20/16 10/21/16 10/21/16 22:59 06:59 14:59 Intake Total 1422 350 Output Total 1000 250 Balance 422 100 Intake: IV 300 Right Antecubital 300 Oral 1422 50 Output: Urine 1000 250 Urine, Voided 1000 250 Stool 0 Other: Voiding Method Bedside Commode Bedside Commode # Voids Urine, Voided 2 # Bowel Movements 0 - Physical Exam Head: Positive for: Atraumatic, Normocephalic Pupils: Positive for: PERRL Extroacular Muscles: Positive for: EOMI Conjunctiva: Positive for: Normal Mouth: Positive for: Moist Mucous Membranes Respiratory/Chest: Positive for: Clear to Auscultation, Good Air Exchange. Negative for: Respiratory Distress, Accessory Muscle Use, Wheezes, Rales, Rhonchi Cardiovascular: Positive for: Normal S1, S2, Tachycardic. Negative for: Murmurs , Irregular Rhythm, Rub, Gallop Abdomen: Positive for: Normal Bowel Sounds. Negative for: Tenderness, Distention, Peritoneal Signs, Guarding Lower Extremity: Positive for: CALF TENDERNESS (left lower leg), NORMAL PULSES. Negative for: Edema Neurological: Positive for: GCS=15 Skin: Positive for: Warm, Dry, Normal Color. Negative for: Rashes Psychiatric: Positive for: Alert, Oriented x 3, Normal Insight, Normal Concentration - Medications Active Medications: Active Medications Generic Name Dose Route Start Last Admin Trade Name Freq PRN Reason Stop Dose Admin Aspirin 81 mg 10/20/16 10:00 10/21/16 09:14 Ecotrin PO 81 mg DAILY AMOS Administration Atorvastatin Calcium 80 mg 10/20/16 17:00 10/20/16 17:53 Lipitor PO 80 mg DIN AMOS Administration Clopidogrel Bisulfate 75 mg 10/20/16 10:00 10/21/16 09:16 Plavix PO 75 mg DAILY AMOS Administration Docusate Sodium 100 mg 10/21/16 10:00 10/21/16 09:13 Colace PO 100 mg DAILY AMOS Administration Enoxaparin Sodium 40 mg 10/20/16 10:00 10/21/16 09:15 Lovenox SC 40 mg DAILY AMOS Administration Protocol Famotidine 20 mg 10/20/16 00:45 10/21/16 09:16 Pepcid PO 20 mg BID AMOS Administration Gabapentin 300 mg 10/20/16 10:00 10/21/16 09:16 Neurontin PO 300 mg TID AMOS Administration Protocol Sodium Chloride 1,000 mls @ 100 mls/hr 10/21/16 09:30 10/21/16 09:29 Sodium Chloride 0.9% IV 100 mls/hr .Q10H AMOS Administration Metronidazole 500 mg in 100 mls @ 100 mls/hr 10/21/16 14:00 Flagyl IVPB Q8 [facility] Protocol Insulin Detemir 60 unit 10/20/16 22:00 10/20/16 21:45 Levemir SC 60 unit HS [facility] Administration Insulin Human Regular 0 units 10/21/16 11:30 10/21/16 11:52 Humulin R High SC 10 units ACHS [facility] Administration Protocol Insulin Lispro Protam/Lispro Human 60 units 10/20/16 07:30 10/21/16 09:14 Humalog Mix 75/25 SC 60 units ACB [facility] Administration Isosorbide Mononitrate 60 mg 10/20/16 10:00 10/21/16 09:15 Imdur PO 60 mg DAILY [facility] Administration Metoprolol Tartrate 25 mg 10/20/16 10:00 10/21/16 09:15 Lopressor PO 25 mg BID [facility] Administration Montelukast Sodium 10 mg 10/20/16 22:00 10/20/16 21:48 Singulair PO 10 mg HS [facility] Administration Morphine Sulfate 4 mg 10/21/16 08:50 10/21/16 09:16 Morphine IVP 4 mg Q4H PRN Administration Pain, severe (8-10) Morphine Sulfate 2 mg 10/21/16 11:49 Morphine IVP Q4H PRN Pain, moderate (4-7) Mupirocin 0 gm 10/21/16 18:00 Bactroban Ointment TOP BID [facility] Ondansetron HCl 4 mg 10/20/16 09:22 10/21/16 09:17 Zofran Inj IVP 4 mg Q6H PRN Administration Nausea/Vomiting Ramipril 10 mg 10/20/16 10:00 10/21/16 09:13 Altace PO 10 mg BID AMOS Administration - Patient Studies Lab Studies: Lab Studies 10/21/16 10/21/16 10/21/16 Range/Units 11:25 07:44 05:30 WBC (4.5-11.0) 10^3/ul RBC (3.5-6.1) 10^6/uL Hgb (12.0-16.0) gm/dL Hct (36.0-48.0) % MCV (80.0-105.0) fL MCH (25.0-35.0) pg MCHC (31.0-37.0) g/dl RDW (11.5-14.5) % Plt Count (120.0-450.0) 10^3/uL MPV (7.0-11.0) fl Neutrophils % (Manual) (50.0-70.0) % Band Neutrophils % (0-2) % Lymphocytes % (Manual) (22.0-35.0) % Monocytes % (Manual) (1.0-6.0) % Platelet Evaluation (NORMAL) pCO2 (35-45) mm/Hg pO2 (30-55) mm/Hg HCO3 (21-28) mmol/L ABG pH (7.35-7.45) ABG Total CO2 (22-28) mmol.L ABG O2 Saturation (95-98) % ABG Base Excess (-2.0-3.0) mmol/L ABG Potassium (3.6-5.2) mmol/L VBG pH (7.32-7.43) VBG pCO2 (40-60) VBG HCO3 (21-28) mmol/l VBG O2 Sat (Calc) (40-65) % VBG Base Excess (0.0-2.0) mmol/L Glucose (65-105) mg/dl Lactate (0.7-2.1) mmol/L FiO2 % Sodium 128 L (132-148) mmol/L Potassium 5.4 H (3.6-5.0) mmol/L Chloride 96 L (98-107) mmol/L Carbon Dioxide 25 (21-33) mmol/L Anion Gap 12 (10-20) BUN 30 H (7-21) mg/dL Creatinine 1.1 (0.5-1.4) mg/dL Est GFR ( Amer) 59 Est GFR (Non-Af Amer) 49 POC Glucose (mg/dL) 310 H 343 H (65-110) mg/dL Random Glucose 368 H* (70-110) mg/dL Calcium 8.5 (8.4-10.5) mg/dL Total Bilirubin 0.3 (0.2-1.3) mg/dL AST 19 (15-39) U/L ALT 21 (7-56) U/L Alkaline Phosphatase 92 (38-133) U/L Total Protein 6.2 (5.8-8.3) g/dL Albumin 3.0 (3.0-4.8) g/dL Globulin 3.2 gm/dL Albumin/Globulin Ratio 0.9 L (1.1-1.8) Arterial Blood Potassium (3.6-5.2) mmol/L 10/21/16 10/20/16 10/20/16 Range/Units 05:30 21:21 16:14 WBC 20.7 H D (4.5-11.0) 10^3/ul RBC 4.23 (3.5-6.1) 10^6/uL Hgb 10.6 L (12.0-16.0) gm/dL Hct 34.2 L (36.0-48.0) % MCV 80.9 (80.0-105.0) fL MCH 25.1 (25.0-35.0) pg MCHC 31.0 (31.0-37.0) g/dl RDW 15.9 H (11.5-14.5) % Plt Count 241 (120.0-450.0) 10^3/uL MPV 9.2 (7.0-11.0) fl Neutrophils % (Manual) 87 H (50.0-70.0) % Band Neutrophils % 2 (0-2) % Lymphocytes % (Manual) 8 L (22.0-35.0) % Monocytes % (Manual) 3 (1.0-6.0) % Platelet Evaluation Normal (NORMAL) pCO2 (35-45) mm/Hg pO2 (30-55) mm/Hg HCO3 (21-28) mmol/L ABG pH (7.35-7.45) ABG Total CO2 (22-28) mmol.L ABG O2 Saturation (95-98) % ABG Base Excess (-2.0-3.0) mmol/L ABG Potassium (3.6-5.2) mmol/L VBG pH (7.32-7.43) VBG pCO2 (40-60) VBG HCO3 (21-28) mmol/l VBG O2 Sat (Calc) (40-65) % VBG Base Excess (0.0-2.0) mmol/L Glucose (65-105) mg/dl Lactate (0.7-2.1) mmol/L FiO2 % Sodium (132-148) mmol/L Potassium (3.6-5.0) mmol/L Chloride (98-107) mmol/L Carbon Dioxide (21-33) mmol/L Anion Gap (10-20) BUN (7-21) mg/dL Creatinine (0.5-1.4) mg/dL Est GFR ( Amer) Est GFR (Non-Af Amer) POC Glucose (mg/dL) 421 H* 382 H (65-110) mg/dL Random Glucose (70-110) mg/dL Calcium (8.4-10.5) mg/dL Total Bilirubin (0.2-1.3) mg/dL AST (15-39) U/L ALT (7-56) U/L Alkaline Phosphatase (38-133) U/L Total Protein (5.8-8.3) g/dL Albumin (3.0-4.8) g/dL Globulin gm/dL Albumin/Globulin Ratio (1.1-1.8) Arterial Blood Potassium (3.6-5.2) mmol/L 10/20/16 10/20/16 10/20/16 Range/Units 14:20 12:30 12:30 WBC (4.5-11.0) 10^3/ul RBC (3.5-6.1) 10^6/uL Hgb (12.0-16.0) gm/dL Hct (36.0-48.0) % MCV (80.0-105.0) fL MCH (25.0-35.0) pg MCHC (31.0-37.0) g/dl RDW (11.5-14.5) % Plt Count (120.0-450.0) 10^3/uL MPV (7.0-11.0) fl Neutrophils % (Manual) (50.0-70.0) % Band Neutrophils % (0-2) % Lymphocytes % (Manual) (22.0-35.0) % Monocytes % (Manual) (1.0-6.0) % Platelet Evaluation (NORMAL) pCO2 50 H (35-45) mm/Hg pO2 82.0 116 H (30-55) mm/Hg HCO3 21.9 (21-28) mmol/L ABG pH 7.25 L (7.35-7.45) ABG Total CO2 23.4 (22-28) mmol.L ABG O2 Saturation 98.0 (95-98) % ABG Base Excess -5.6 L (-2.0-3.0) mmol/L ABG Potassium 5.3 H (3.6-5.2) mmol/L VBG pH 7.14 L* (7.32-7.43) VBG pCO2 70.0 H* (40-60) VBG HCO3 23.8 (21-28) mmol/l VBG O2 Sat (Calc) 99.2 H (40-65) % VBG Base Excess -6.4 L (0.0-2.0) mmol/L Glucose 427 H* (65-105) mg/dl Lactate 1.5 (0.7-2.1) mmol/L FiO2 32.0 % Sodium 141.0 129 L (132-148) mmol/L Potassium 5.0 (3.6-5.0) mmol/L Chloride 90.0 L 94 L (98-107) mmol/L Carbon Dioxide 25 (21-33) mmol/L Anion Gap 15 (10-20) BUN 21 (7-21) mg/dL Creatinine 0.9 (0.5-1.4) mg/dL Est GFR ( Amer) > 60 Est GFR (Non-Af Amer) > 60 POC Glucose (mg/dL) (65-110) mg/dL Random Glucose 398 H* (70-110) mg/dL Calcium 8.3 L (8.4-10.5) mg/dL Total Bilirubin (0.2-1.3) mg/dL AST (15-39) U/L ALT (7-56) U/L Alkaline Phosphatase (38-133) U/L Total Protein (5.8-8.3) g/dL Albumin (3.0-4.8) g/dL Globulin gm/dL Albumin/Globulin Ratio (1.1-1.8) Arterial Blood Potassium 5.3 H (3.6-5.2) mmol/L Laboratory Results - last 24 hr 10/20/16 10/20/16 10/20/16 12:30 12:30 14:20 WBC RBC Hgb Hct MCV MCH MCHC RDW Plt Count MPV Neutrophils % (Manual) Band Neutrophils % Lymphocytes % (Manual) Monocytes % (Manual) Platelet Evaluation pCO2 50 H pO2 116 H 82.0 HCO3 21.9 ABG pH 7.25 L ABG Total CO2 23.4 ABG O2 Saturation 98.0 ABG Base Excess -5.6 L ABG Potassium 5.3 H VBG pH 7.14 L* VBG pCO2 70.0 H* VBG HCO3 23.8 VBG O2 Sat (Calc) 99.2 H VBG Base Excess -6.4 L Glucose 427 H* Lactate 1.5 FiO2 32.0 Sodium 129 L 141.0 Potassium 5.0 Chloride 94 L 90.0 L Carbon Dioxide 25 Anion Gap 15 BUN 21 Creatinine 0.9 Est GFR ( Amer) > 60 Est GFR (Non-Af Amer) > 60 POC Glucose (mg/dL) Random Glucose 398 H* Calcium 8.3 L Total Bilirubin AST ALT Alkaline Phosphatase Total Protein Albumin Globulin Albumin/Globulin Ratio Arterial Blood Potassium 5.3 H 10/20/16 10/20/16 10/21/16 16:14 21:21 05:30 WBC 20.7 H D RBC 4.23 Hgb 10.6 L Hct 34.2 L MCV 80.9 MCH 25.1 MCHC 31.0 RDW 15.9 H Plt Count 241 MPV 9.2 Neutrophils % (Manual) 87 H Band Neutrophils % 2 Lymphocytes % (Manual) 8 L Monocytes % (Manual) 3 Platelet Evaluation Normal pCO2 pO2 HCO3 ABG pH ABG Total CO2 ABG O2 Saturation ABG Base Excess ABG Potassium VBG pH VBG pCO2 VBG HCO3 VBG O2 Sat (Calc) VBG Base Excess Glucose Lactate FiO2 Sodium Potassium Chloride Carbon Dioxide Anion Gap BUN Creatinine Est GFR ( Amer) Est GFR (Non-Af Amer) POC Glucose (mg/dL) 382 H 421 H* Random Glucose Calcium Total Bilirubin AST ALT Alkaline Phosphatase Total Protein Albumin Globulin Albumin/Globulin Ratio Arterial Blood Potassium 10/21/16 10/21/16 10/21/16 05:30 07:44 11:25 WBC RBC Hgb Hct MCV MCH MCHC RDW Plt Count MPV Neutrophils % (Manual) Band Neutrophils % Lymphocytes % (Manual) Monocytes % (Manual) Platelet Evaluation pCO2 pO2 HCO3 ABG pH ABG Total CO2 ABG O2 Saturation ABG Base Excess ABG Potassium VBG pH VBG pCO2 VBG HCO3 VBG O2 Sat (Calc) VBG Base Excess Glucose Lactate FiO2 Sodium 128 L Potassium 5.4 H Chloride 96 L Carbon Dioxide 25 Anion Gap 12 BUN 30 H Creatinine 1.1 Est GFR ( Amer) 59 Est GFR (Non-Af Amer) 49 POC Glucose (mg/dL) 343 H 310 H Random Glucose 368 H* Calcium 8.5 Total Bilirubin 0.3 AST 19 ALT 21 Alkaline Phosphatase 92 Total Protein 6.2 Albumin 3.0 Globulin 3.2 Albumin/Globulin Ratio 0.9 L Arterial Blood Potassium EKG/Cardiology Studies: Cardiology / EKG Studies 10/21/16 09:30 ELECTROCARDIOGRAM DAILY Comment: Reason For Exam: chest pain Fingerstick Blood Sugar Results: 310 Critical Care Progress Note - Nutrition Nutrition: Nutrition Category Date Time Status Heart Healthy Diet [DIET] Diets 10/20/16 Breakfast Ordered Assessment/Plan - Assessment and Plan (Free Text) Assessment: 71 y/o F w/ CAD s/p Cardiac cath s/p 2 JUNIOR LAD + CIRC On all cardiac protective meds Asprin, Plavix, Statin, B Timoteo and Calvin as tolerated. Elevated WBC , Blood and Urine cx pending. On Rocephin and Flagyl. ID following. DVT P Diet advanced. DM - Blood sugars need to be strictly controlled , Levimir adjusted and Sliding scale. cc time 55 min
--- NOTE | 2016-10-21 12:47 | RAD ---
HISTORY: rule out pneumonia COMPARISON: 10/19/2016 FINDINGS: LUNGS: No active pulmonary disease. PLEURA: No significant pleural effusion identified, no pneumothorax apparent. CARDIOVASCULAR: Mild cardiomegaly. Moderate vascular congestion OSSEOUS STRUCTURES: No significant abnormalities. VISUALIZED UPPER ABDOMEN: Normal. OTHER FINDINGS: None. IMPRESSION: Increasing vascular congestion. Mild cardiomegaly
[2016-10-21] MEDS: metroNIDAZOLE IV 500 mg/100 ml 500 MG/100 ML BAG IVPB SCH ×2 (13:52→21:41)
[2016-10-21] MEDS ORDERED: metroNIDAZOLE IV 500 mg/100 ml 500 MG/100 ML BAG IVPB SCH (14:00)
--- NOTE | 2016-10-21 14:42 | CP.PCM.CON ---
History of Present Illness - History of Present Illness History of Present Illness: General Surgery- Dr. Davis 71 F with PMHx of IDDM, CAD 4 stents, Diverticulitis, colotis, presented to the ED with 10/10 sharp splitting chest pain chest pain radiating b/L to shoulders and neck. General surgery was consulted because pt has a right port that flushes but does not draw. Pt states the port was initially placed 11 years ago to draw blood for lab work because of poor veins. Pt currently denies SOB N/V/D F/C [place]/Dizziness PMH: IDDM, CAD 4 stents, Diverticulitis, colitis PSH: hysterectomy, appendectomy, mesh implant in belly "broke" ALL: PCN sea food SH: smoked for >60 years, denies drinking or drugs Review of Systems - Review of Systems All systems: reviewed and no additional remarkable complaints except Past Patient History - Infectious Disease Hx of Infectious Diseases: None - Tetanus Immunizations Tetanus Immunization: Unknown - Past Medical History & Family History Past Medical History?: Yes - Past Social History Smoking Status: Former Smoker - CARDIAC Hx Cardiac Disorders: Yes (CO, CAD) Hx Hypercholesterolemia: Yes Hx Hypertension: Yes - NEUROLOGICAL Hx Neurological Disorder: Yes (Peripheral neuropathy) - ENDOCRINE/METABOLIC Hx Diabetes Mellitus Type 1: Yes - MUSCULOSKELETAL/RHEUMATOLOGICAL Hx Arthritis: Yes Hx Degenerative Joint Disease: Yes Hx Falls: No Hx Herniated Disk: Yes Hx Spinal Stenosis: Yes - GASTROINTESTINAL Hx Gastrointestinal Disorders: Yes (Gallstones, Chronic wound in abdomen, colitis) Hx Diverticulitis: Yes Hx Gastroesophageal Reflux: Yes - GENITOURINARY/GYNECOLOGICAL Hx Genitourinary Disorders: Yes (Cystoscopy with bladder biopsy) Hx Urinary Tract Infection: Yes - PSYCHIATRIC Hx Substance Use: No - SURGICAL HISTORY Hx Surgeries: Yes (Multiple hernia repairs with mesh removal) Hx Cardiac Catheterization: Yes Hx Coronary Stent: Yes ([id number]) Hx Hysterectomy: Yes Hx Joint Replacement: Yes (Right knee replacement) - ANESTHESIA Hx Anesthesia: Yes Hx Anesthesia Reactions: No Hx Malignant Hyperthermia: No Meds Allergies/Adverse Reactions: Allergies Allergy/AdvReac Type Severity Reaction Status Date / Time acetaminophen [From Percocet] Allergy Intermediate VOMITING Verified 11/23/15 11 :04 bacitracin Allergy Intermediate REDNESS Verified 11/23/15 11:04 oxycodone HCl [From Percocet] Allergy Intermediate VOMITING Verified 11/23/15 11 :04 Penicillins Allergy Intermediate RASH Verified 11/23/15 11:04 shellfish derived Allergy Intermediate RASH Verified 11/23/15 11:04 - Medications Medications: Current Medications Aspirin (Ecotrin) 81 mg PO DAILY [facility] Last Admin: 10/21/16 09:14 Dose: 81 mg Atorvastatin Calcium (Lipitor) 80 mg PO DIN [facility] Last Admin: 10/20/16 17:53 Dose: 80 mg Clopidogrel Bisulfate (Plavix) 75 mg PO DAILY [facility] Last Admin: 10/21/16 09:16 Dose: 75 mg Docusate Sodium (Colace) 100 mg PO DAILY [facility] Last Admin: 10/21/16 09:13 Dose: 100 mg Enoxaparin Sodium (Lovenox) 40 mg SC DAILY [facility] PRN Reason: Protocol Last Admin: 10/21/16 09:15 Dose: 40 mg Famotidine (Pepcid) 20 mg PO BID [facility] Last Admin: 10/21/16 09:16 Dose: 20 mg Gabapentin (Neurontin) 300 mg PO TID [facility] PRN Reason: Protocol Last Admin: 10/21/16 13:55 Dose: 300 mg Sodium Chloride (Sodium Chloride 0.9%) 1,000 mls @ 100 mls/hr IV .Q10H [facility] Last Admin: 10/21/16 09:29 Dose: 100 mls/hr Metronidazole (Flagyl) 500 mg in 100 mls @ 100 mls/hr IVPB Q8 [facility] PRN Reason: Protocol Last Admin: 10/21/16 13:52 Dose: 100 mls/hr Insulin Detemir (Levemir) 60 unit SC HS [facility] Last Admin: 10/20/16 21:45 Dose: 60 unit Insulin Human Regular (Humulin R High) 0 units SC ACHS [facility] PRN Reason: Protocol Last Admin: 10/21/16 11:52 Dose: 10 units Insulin Lispro Protam/Lispro Human (Humalog Mix 75/25) 60 units SC ACB [facility] Last Admin: 10/21/16 09:14 Dose: 60 units Isosorbide Mononitrate (Imdur) 60 mg PO DAILY [facility] Last Admin: 10/21/16 09:15 Dose: 60 mg Metoprolol Tartrate (Lopressor) 25 mg PO BID [facility] Last Admin: 10/21/16 09:15 Dose: 25 mg Montelukast Sodium (Singulair) 10 mg PO HS [facility] Last Admin: 10/20/16 21:48 Dose: 10 mg Morphine Sulfate (Morphine) 4 mg IVP Q4H PRN PRN Reason: Pain, severe (8-10) Last Admin: 10/21/16 13:53 Dose: 4 mg Morphine Sulfate (Morphine) 2 mg IVP Q4H PRN PRN Reason: Pain, moderate (4-7) Mupirocin (Bactroban Ointment) 0 gm TOP BID [facility] Ondansetron HCl (Zofran Inj) 4 mg IVP Q6H PRN PRN Reason: Nausea/Vomiting Last Admin: 10/21/16 09:17 Dose: 4 mg Ramipril (Altace) 10 mg PO BID [facility] Last Admin: 10/21/16 09:13 Dose: 10 mg Physical Exam - Constitutional Appears: No Acute Distress - Head Exam Head Exam: ATRAUMATIC - Eye Exam Eye Exam: EOMI - ENT Exam ENT Exam: Mucous Membranes Moist - Respiratory Exam Respiratory Exam: Wheezes, NORMAL BREATHING PATTERN. absent: Accessory Muscle Use, Chest Wall Tenderness, Rhonchi - Cardiovascular Exam Cardiovascular Exam: REGULAR RHYTHM, +S1, +S2 - GI/Abdominal Exam GI & Abdominal Exam: Organomegaly, Soft - Neurological Exam Neurological exam: Alert, Oriented x3 - Psychiatric Exam Psychiatric exam: Normal Affect - Skin Skin Exam: Dry Additional comments: port in right chest Results - Vital Signs Recent Vital Signs: Last Vital Signs Temp 97.6 F 10/21/16 01:25 Pulse 80 10/21/16 09:15 Resp 11 L 10/21/16 06:45 BP 123/56 L 10/21/16 09:15 Pulse Ox 90 L 10/21/16 05:45 - Labs Result Diagrams: 10/21/16 05:30 10/21/16 05:30 Labs: Laboratory Results - last 24 hr 10/20/16 10/20/16 10/20/16 14:20 16:14 21:21 WBC RBC Hgb Hct MCV MCH MCHC RDW Plt Count MPV Neutrophils % (Manual) Band Neutrophils % Lymphocytes % (Manual) Monocytes % (Manual) Platelet Evaluation pCO2 50 H pO2 82.0 HCO3 21.9 ABG pH 7.25 L ABG Total CO2 23.4 ABG O2 Saturation 98.0 ABG Base Excess -5.6 L ABG Potassium 5.3 H Sodium 141.0 Chloride 90.0 L Glucose 427 H* Lactate 1.5 FiO2 32.0 Potassium Carbon Dioxide Anion Gap BUN Creatinine Est GFR ( Amer) Est GFR (Non-Af Amer) POC Glucose (mg/dL) 382 H 421 H* Random Glucose Calcium Total Bilirubin AST ALT Alkaline Phosphatase Total Protein Albumin Globulin Albumin/Globulin Ratio Arterial Blood Potassium 5.3 H 10/21/16 10/21/16 10/21/16 05:30 05:30 07:44 WBC 20.7 H D RBC 4.23 Hgb 10.6 L Hct 34.2 L MCV 80.9 MCH 25.1 MCHC 31.0 RDW 15.9 H Plt Count 241 MPV 9.2 Neutrophils % (Manual) 87 H Band Neutrophils % 2 Lymphocytes % (Manual) 8 L Monocytes % (Manual) 3 Platelet Evaluation Normal pCO2 pO2 HCO3 ABG pH ABG Total CO2 ABG O2 Saturation ABG Base Excess ABG Potassium Sodium 128 L Chloride 96 L Glucose Lactate FiO2 Potassium 5.4 H Carbon Dioxide 25 Anion Gap 12 BUN 30 H Creatinine 1.1 Est GFR ( Amer) 59 Est GFR (Non-Af Amer) 49 POC Glucose (mg/dL) 343 H Random Glucose 368 H* Calcium 8.5 Total Bilirubin 0.3 AST 19 ALT 21 Alkaline Phosphatase 92 Total Protein 6.2 Albumin 3.0 Globulin 3.2 Albumin/Globulin Ratio 0.9 L Arterial Blood Potassium 10/21/16 11:25 WBC RBC Hgb Hct MCV MCH MCHC RDW Plt Count MPV Neutrophils % (Manual) Band Neutrophils % Lymphocytes % (Manual) Monocytes % (Manual) Platelet Evaluation pCO2 pO2 HCO3 ABG pH ABG Total CO2 ABG O2 Saturation ABG Base Excess ABG Potassium Sodium Chloride Glucose Lactate FiO2 Potassium Carbon Dioxide Anion Gap BUN Creatinine Est GFR ( Amer) Est GFR (Non-Af Amer) POC Glucose (mg/dL) 310 H Random Glucose Calcium Total Bilirubin AST ALT Alkaline Phosphatase Total Protein Albumin Globulin Albumin/Globulin Ratio Arterial Blood Potassium Assessment & Plan - Assessment and Plan (Free Text) Assessment: 71F w/ multiple comorbidities, Right port removal Plan: - c/w medical management - plan for removal of port in OR on Sunday - further recs Per Dr. Davis D/W Dr. Ryan Hernandez PGY1
--- NOTE | 2016-10-21 15:24 | PN ---
DATE: SUBJECTIVE: The patient denies any chest pain or groin pain. No reported ventricular arrhythmia. PHYSICAL EXAMINATION: VITAL SIGNS: Blood pressure 123/56, heart rate 80, respiration 11, temperature 97.6. HEENT: Normocephalic. CHEST: Clear. HEART: Sounds regular. EXTREMITIES: No groin hematoma. LABORATORY DATA: Hemoglobin and hematocrit are 10.6 and 34.2, white count and platelet count 20.7 and 241,000. SMA-7: Sodium 128, potassium 5.4, chloride 96, CO2 of 25, glucose 368, BUN 30 and creatinine 1.1. Today's EKG reviewed, sinus rhythm with nonspecific ST segment changes. ASSESSMENT: 1. Status post non-ST elevation myocardial infarction with successful percutaneous coronary intervention to the left anterior descending and the circumflex artery performed yesterday. 2. Uncontrolled diabetes mellitus. 3. Hyponatremia. 4. Hyperkalemia. 5. Infected anterior abdominal wound mesh with pus discharges from there. 6. History of Port-A-Cath placed some 11 years ago. RECOMMENDATIONS: Continue Altace 10 mg twice a day, aspirin 81 mg once a day, IV Flagyl. Continue Plavix 75 mg once a day, subcutaneous Lovenox 40 mg once a day, Lopressor 25 mg once a day. Kayexalate 30 g was given as a single oral dose today. Follow BMP in a.m. The plan is to remove the Port-A-Cath early next week. Suman Man MD
[2016-10-21] MEDS: Insulin Detemir 100 units/ml Vial (Levemir) SC SCH (21:39)
[2016-10-22] MEDS: Morphine 4 mg/ml ISec IVP PRN ×4 (03:00→21:53)
--- NOTE | 2016-10-22 03:42 | CP.PCM.PN ---
Subjective - Date & Time of Evaluation Date of Evaluation: 10/22/16 Time of Evaluation: 03:39 - Subjective Subjective: S:Patient has pain.Is getting IV morphine for pain.But there is no IV access at this time. It was requested to insert a heparin lock. Patient has no other complaints. O: Last Vital Signs 3 Temp 97.9 F 10/22/16 00:04 Pulse 73 10/22/16 00:04 Resp 19 10/22/16 00:04 BP 104/52 L 10/22/16 00:04 Pulse Ox 94 L 10/22/16 00:04 Obese person. Awake, alert, not in distress. LUNGS: normal breathing pattern. A:Poor venous access. Encounter for intravenous line placement. P: # 24 size angiocath was inserted in left hand dorsum. Objective - Vital Signs/Intake and Output Vital Signs (last 24 hours): Temp Pulse Resp BP Pulse Ox 97.9 F 73 19 104/52 L 94 L 10/22/16 00:04 10/22/16 00:04 10/22/16 00:04 10/22/16 00:04 10/22/16 00:04 Intake and Output: 10/21/16 10/22/16 18:59 06:59 Intake Total 1500 Balance 1500 - Medications Medications: Current Medications Aspirin (Ecotrin) 81 mg PO DAILY [facility] Last Admin: 10/21/16 09:14 Dose: 81 mg Atorvastatin Calcium (Lipitor) 80 mg PO DIN [facility] Last Admin: 10/21/16 18:15 Dose: 80 mg Clopidogrel Bisulfate (Plavix) 75 mg PO DAILY [facility] Last Admin: 10/21/16 09:16 Dose: 75 mg Docusate Sodium (Colace) 100 mg PO DAILY [facility] Last Admin: 10/21/16 09:13 Dose: 100 mg Enoxaparin Sodium (Lovenox) 40 mg SC DAILY [facility] PRN Reason: Protocol Last Admin: 10/21/16 09:15 Dose: 40 mg Famotidine (Pepcid) 20 mg PO BID [facility] Last Admin: 10/21/16 18:16 Dose: 20 mg Gabapentin (Neurontin) 300 mg PO TID [facility] PRN Reason: Protocol Last Admin: 10/21/16 18:16 Dose: 300 mg Sodium Chloride (Sodium Chloride 0.9%) 1,000 mls @ 100 mls/hr IV .Q10H [facility] Last Admin: 10/21/16 09:29 Dose: 100 mls/hr Metronidazole (Flagyl) 500 mg in 100 mls @ 100 mls/hr IVPB Q8 [facility] PRN Reason: Protocol Last Admin: 10/21/16 21:41 Dose: 100 mls/hr Insulin Detemir (Levemir) 60 unit SC [facility] Last Admin: 10/21/16 21:39 Dose: 1 unit Insulin Human Regular (Humulin R High) 0 units SC ACHS [facility] PRN Reason: Protocol Last Admin: 10/21/16 21:48 Dose: Not Given Insulin Lispro Protam/Lispro Human (Humalog Mix 75/25) 60 units SC ACB [facility] Last Admin: 10/21/16 09:14 Dose: 60 units Isosorbide Mononitrate (Imdur) 60 mg PO DAILY [facility] Last Admin: 10/21/16 09:15 Dose: 60 mg Metoprolol Tartrate (Lopressor) 25 mg PO BID [facility] Last Admin: 10/21/16 18:15 Dose: 25 mg Montelukast Sodium (Singulair) 10 mg PO [facility] Last Admin: 10/21/16 21:39 Dose: 10 mg Morphine Sulfate (Morphine) 4 mg IVP Q4H PRN PRN Reason: Pain, severe (8-10) Last Admin: 10/22/16 03:00 Dose: 4 mg Morphine Sulfate (Morphine) 2 mg IVP Q4H PRN PRN Reason: Pain, moderate (4-7) Mupirocin (Bactroban Ointment) 0 gm TOP BID [facility] Last Admin: 10/21/16 18:13 Dose: 1 appful Ondansetron HCl (Zofran Inj) 4 mg IVP Q6H PRN PRN Reason: Nausea/Vomiting Last Admin: 10/21/16 18:16 Dose: 4 mg Ramipril (Altace) 10 mg PO BID [facility] Last Admin: 10/21/16 18:13 Dose: 10 mg - Labs Labs: 10/21/16 05:30 10/21/16 05:30 PT 10.5 Seconds (9.9-11.8) 10/20/16 02:00 INR 0.97 (0.93-1.08) 10/20/16 02:00 APTT 38.9 Seconds (23.7-30.8) H 10/20/16 02:00
[2016-10-22] MEDS: metroNIDAZOLE IV 500 mg/100 ml 500 MG/100 ML BAG IVPB SCH ×3 (06:09→21:54)
[2016-10-22 07:41] LABS: BASO # 0.03 K/mm3 (0.0-2.0); BASO % 0.2 % (0.0-3.0); EOS # 0.2 (0.0-0.7); EOS % 0.9 % (1.5-5.0); GRAN # 12.24 (1.4-6.5); HEMOGLOBIN 10.4 gm/dL (12.0-16.0); LYMPH # 3.3 (1.2-3.4); LYMPH % 18.9 % (22.0-35.0); MEAN CELL VOLUME 82.2 fL (80.0-105.0); MEAN CORPUSCULAR HEMOGLOBIN 24.6 pg (25.0-35.0); MEAN PLATELET VOLUME 8.9 fl (7.0-11.0); MONO # 1.6 (0.1-0.6); PLATELET COUNT 286 10^3/uL (120.0-450.0); RBC 4.22 10^6/uL (3.5-6.1); RED CELL DISTRIBUTION WIDTH 16.1 % (11.5-14.5); WHITE BLOOD COUNT 17.3 10^3/ul (4.5-11.0)
[2016-10-22 07:54] LABS: ALBUMIN 3.1 g/dL (3.0-4.8); CALCIUM 7.9 mg/dL (8.4-10.5)
--- NOTE | 2016-10-22 08:55 | CP.PCM.PN ---
Subjective - Date & Time of Evaluation Date of Evaluation: 10/22/16 Time of Evaluation: 08:51 - Subjective Subjective: Medicine Progress Note Patient seen and examined at bedside. As per nursing staff, there were no acute overnight events. Patient reports having chest pain as well as abdominal pain. It has improved since yesterday with the morphine. She also reports having chills. She denies SOB, n/v/d, numbness/tingling, fever or dysuria. Objective - Vital Signs/Intake and Output Vital Signs (last 24 hours): Temp Pulse Resp BP Pulse Ox 99.2 F 87 20 88/60 L 93 L 10/22/16 06:00 10/22/16 06:00 10/22/16 06:00 10/22/16 06:00 10/22/16 06:00 Intake and Output: 10/22/16 10/22/16 06:59 18:59 Intake Total 1340 Output Total 1000 Balance 340 - Medications Medications: Current Medications Aspirin (Ecotrin) 81 mg PO DAILY [facility] Last Admin: 10/21/16 09:14 Dose: 81 mg Atorvastatin Calcium (Lipitor) 80 mg PO DIN [facility] Last Admin: 10/21/16 18:15 Dose: 80 mg Clopidogrel Bisulfate (Plavix) 75 mg PO DAILY [facility] Last Admin: 10/21/16 09:16 Dose: 75 mg Docusate Sodium (Colace) 100 mg PO DAILY [facility] Last Admin: 10/21/16 09:13 Dose: 100 mg Enoxaparin Sodium (Lovenox) 40 mg SC DAILY [facility] PRN Reason: Protocol Last Admin: 10/21/16 09:15 Dose: 40 mg Famotidine (Pepcid) 20 mg PO BID [facility] Last Admin: 10/21/16 18:16 Dose: 20 mg Gabapentin (Neurontin) 300 mg PO TID [facility] PRN Reason: Protocol Last Admin: 10/21/16 18:16 Dose: 300 mg Sodium Chloride (Sodium Chloride 0.9%) 1,000 mls @ 100 mls/hr IV .Q10H [facility] Last Admin: 10/21/16 09:29 Dose: 100 mls/hr Metronidazole (Flagyl) 500 mg in 100 mls @ 100 mls/hr IVPB Q8 [facility] PRN Reason: Protocol Last Admin: 10/22/16 06:09 Dose: 100 mls/hr Insulin Detemir (Levemir) 60 unit SC [facility] Last Admin: 10/21/16 21:39 Dose: 1 unit Insulin Human Regular (Humulin R High) 0 units SC [facility] PRN Reason: Protocol Last Admin: 10/21/16 21:48 Dose: Not Given Insulin Lispro Protam/Lispro Human (Humalog Mix 75/25) 60 units SC ACB [facility] Last Admin: 10/21/16 09:14 Dose: 60 units Isosorbide Mononitrate (Imdur) 60 mg PO DAILY [facility] Last Admin: 10/21/16 09:15 Dose: 60 mg Metoprolol Tartrate (Lopressor) 25 mg PO BID [facility] Last Admin: 10/21/16 18:15 Dose: 25 mg Montelukast Sodium (Singulair) 10 mg PO [facility] Last Admin: 10/21/16 21:39 Dose: 10 mg Morphine Sulfate (Morphine) 4 mg IVP Q4H PRN PRN Reason: Pain, severe (8-10) Last Admin: 10/22/16 03:00 Dose: 4 mg Morphine Sulfate (Morphine) 2 mg IVP Q4H PRN PRN Reason: Pain, moderate (4-7) Mupirocin (Bactroban Ointment) 0 gm TOP BID [facility] Last Admin: 10/21/16 18:13 Dose: 1 appful Ondansetron HCl (Zofran Inj) 4 mg IVP Q6H PRN PRN Reason: Nausea/Vomiting Last Admin: 10/21/16 18:16 Dose: 4 mg Ramipril (Altace) 10 mg PO BID [facility] Last Admin: 10/21/16 18:13 Dose: 10 mg - Labs Labs: 10/22/16 07:34 10/22/16 07:34 PT 10.5 Seconds (9.9-11.8) 10/20/16 02:00 INR 0.97 (0.93-1.08) 10/20/16 02:00 APTT 38.9 Seconds (23.7-30.8) H 10/20/16 02:00 - Constitutional Appears: No Acute Distress - Head Exam Head Exam: ATRAUMATIC, NORMAL INSPECTION, NORMOCEPHALIC - Eye Exam Eye Exam: Normal appearance, PERRL Pupil Exam: NORMAL ACCOMODATION, PERRL - ENT Exam ENT Exam: Mucous Membranes Moist - Neck Exam Neck Exam: Full ROM - Respiratory Exam Respiratory Exam: Clear to Ausculation Bilateral, NORMAL BREATHING PATTERN. absent: Rales, Rhonchi, Wheezes - Cardiovascular Exam Cardiovascular Exam: REGULAR RHYTHM, +S1, +S2. absent: Gallop, Rubs, Murmur Additional comments: Permacath in place. - GI/Abdominal Exam GI & Abdominal Exam: Soft, Tenderness (diffuse), Normal Bowel Sounds. absent: Rigid, Mass, Rebound - Extremities Exam Extremities Exam: Normal Inspection. absent: Calf Tenderness, Pedal Edema - Neurological Exam Neurological Exam: Alert, Awake, CN II-XII Intact, Oriented x3 - Psychiatric Exam Psychiatric exam: Normal Affect, Normal Mood - Skin Skin Exam: Dry, Normal Color, Warm Assessment and Plan - Assessment and Plan (Free Text) Assessment: This is a 71Y F with PMH IDDM, CAD s/p 4 stents, diverticulitis, colitis admitted for unstable NSTEMI. She had cardiac cath yesterday with [address] in the proximal LAD and proximal circumflex. She is now found to have leukocytosis, septic workup is pending. Plan: 1. NSTEMI - s/p Cardiac cath with 2 drug eluting stents (in LAD and L circumflex) - ASA, Plavix, Lipitor, Imdur, Lopressor and Altace - Morphine prn - Cardiology recommendations appreciated - As per cardiology pt will need to be indefinitely on ASA and on Plavix for at least 1 yr. 2. Leukocytosis - secondary to colitis seen on CT - Pt afebrile, leukocytosis trending down - U/A pending - CXR showed mild vasc congestion - Procal is low, lactate 1.5 - ID consulted - recs appreciated 3. Chronic Permacath - Pt had permacath x 11 yrs for access - never had chemotherapy, no signs of infection - Surgery consulted- will remove on Sunday 4. IDDM - HgbA1c 9.6 - Levemir 60U HS and Novolog 60U before meals - ISS - Continue Carb Consistent/Heart Healthy diet 5. HLD - Lipitor 6. HTN - Lopressor, Altace and Imdur GI ppx: Pepcid DVT ppx: Lovenox Dispo: PT eval pending. Case seen, reviewed and discussed with Dr. Penelope Mcmanus PGY2
[2016-10-22] MEDS: Enoxaparin 40 mg Syringe SC SCH (09:45)
[2016-10-22] MEDS: Insulin Lispro (humaLOG) MIX 75/25(10 ml) SC SCH ×2 (09:46→10:33)
--- NOTE | 2016-10-22 10:11 | CP.PCM.PN ---
Subjective - Date & Time of Evaluation Date of Evaluation: 10/22/16 Time of Evaluation: 08:30 - Subjective Subjective: Patient seen and examined. No acute events overnight. Admits to baseline chest pain and SOB. Also states she is experiencing intermittent fever and chills. Denies SOB, n/v/d. Objective - Vital Signs/Intake and Output Vital Signs (last 24 hours): Temp Pulse Resp BP Pulse Ox 99.2 F 117 H 20 101/43 L 93 L 10/22/16 06:00 10/22/16 09:33 10/22/16 06:00 10/22/16 09:33 10/22/16 06:00 Intake and Output: 10/22/16 10/22/16 06:59 18:59 Intake Total 1340 Output Total 1000 Balance 340 - Medications Medications: Current Medications Aspirin (Ecotrin) 81 mg PO DAILY [facility] Last Admin: 10/22/16 09:38 Dose: 81 mg Atorvastatin Calcium (Lipitor) 80 mg PO DIN [facility] Last Admin: 10/21/16 18:15 Dose: 80 mg Clopidogrel Bisulfate (Plavix) 75 mg PO DAILY [facility] Last Admin: 10/22/16 09:38 Dose: 75 mg Docusate Sodium (Colace) 100 mg PO DAILY [facility] Last Admin: 10/22/16 09:38 Dose: 100 mg Enoxaparin Sodium (Lovenox) 40 mg SC DAILY [facility] PRN Reason: Protocol Last Admin: 10/22/16 09:45 Dose: 40 mg Famotidine (Pepcid) 20 mg PO BID [facility] Last Admin: 10/22/16 09:38 Dose: 20 mg Gabapentin (Neurontin) 300 mg PO TID [facility] PRN Reason: Protocol Last Admin: 10/22/16 09:37 Dose: 300 mg Sodium Chloride (Sodium Chloride 0.9%) 1,000 mls @ 100 mls/hr IV .Q10H [facility] Last Admin: 10/21/16 09:29 Dose: 100 mls/hr Metronidazole (Flagyl) 500 mg in 100 mls @ 100 mls/hr IVPB Q8 [facility] PRN Reason: Protocol Last Admin: 10/22/16 06:09 Dose: 100 mls/hr Aztreonam (Azactam 1 Gm) 100 mls @ 100 mls/hr IVPB Q8 [facility] PRN Reason: Protocol Stop: 10/27/16 14:01 Insulin Detemir (Levemir) 60 unit SC [facility] Last Admin: 10/21/16 21:39 Dose: 1 unit Insulin Human Regular (Humulin R High) 0 units SC [facility] PRN Reason: Protocol Last Admin: 10/21/16 21:48 Dose: Not Given Insulin Lispro Protam/Lispro Human (Humalog Mix 75/25) 60 units SC ACB [facility] Last Admin: 10/22/16 09:46 Dose: 60 units Isosorbide Mononitrate (Imdur) 60 mg PO DAILY [facility] Last Admin: 10/22/16 09:38 Dose: 60 mg Metoprolol Tartrate (Lopressor) 25 mg PO BID [facility] Last Admin: 10/22/16 09:33 Dose: 25 mg Montelukast Sodium (Singulair) 10 mg PO [facility] Last Admin: 10/21/16 21:39 Dose: 10 mg Morphine Sulfate (Morphine) 4 mg IVP Q4H [facility] PRN Reason: Pain, severe (8-10) Last Admin: 10/22/16 03:00 Dose: 4 mg Morphine Sulfate (Morphine) 2 mg IVP Q4H PRN PRN Reason: Pain, moderate (4-7) Mupirocin (Bactroban Ointment) 0 gm TOP BID [facility] Last Admin: 10/21/16 18:13 Dose: 1 appful Ondansetron HCl (Zofran Inj) 4 mg IVP Q6H PRN PRN Reason: Nausea/Vomiting Last Admin: 10/21/16 18:16 Dose: 4 mg Ramipril (Altace) 10 mg PO BID [facility] Last Admin: 10/22/16 09:38 Dose: 10 mg - Labs Labs: 10/22/16 07:34 10/22/16 07:34 PT 10.5 Seconds (9.9-11.8) 10/20/16 02:00 INR 0.97 (0.93-1.08) 10/20/16 02:00 APTT 38.9 Seconds (23.7-30.8) H 10/20/16 02:00 - Additional Findings Additional findings: - Constitutional Appears: No Acute Distress - Head Exam Head Exam: ATRAUMATIC, NORMAL INSPECTION, NORMOCEPHALIC - Eye Exam Eye Exam: Normal appearance, PERRL Pupil Exam: NORMAL ACCOMODATION, PERRL - ENT Exam ENT Exam: Mucous Membranes Moist - Neck Exam Neck Exam: Full ROM - Respiratory Exam Respiratory Exam: Clear to Ausculation Bilateral, NORMAL BREATHING PATTERN. absent: Rales, Rhonchi, Wheezes - Cardiovascular Exam Cardiovascular Exam: REGULAR RHYTHM, +S1, +S2. absent: Gallop, Rubs, Murmur Additional comments: Permacath in place. - GI/Abdominal Exam GI & Abdominal Exam: Soft, Tenderness (diffuse), Normal Bowel Sounds. absent: Rigid, Mass, Rebound - Extremities Exam Extremities Exam: Normal Inspection. absent: Calf Tenderness, Pedal Edema - Neurological Exam Neurological Exam: Alert, Awake, CN II-XII Intact, Oriented x3 - Psychiatric Exam Psychiatric exam: Normal Affect, Normal Mood - Skin Skin Exam: Dry, Normal Color, Warm Assessment and Plan - Assessment and Plan (Free Text) Assessment: 71Y F for which surgery is consulted for removal of chronic permacath. Chronic Permacath - Pt had permacath x 11 yrs for access - never had chemotherapy, no signs of infection - Will schedule for removal on Sunday - IVF - Zofran - Pain control D/w attending.
[2016-10-22] MEDS: Insulin Reg-HIGH-Coverage SC SCH ×4 (10:15→22:00)
--- NOTE | 2016-10-22 11:20 | CP.PCM.PN ---
Subjective - Date & Time of Evaluation Date of Evaluation: 10/22/16 Time of Evaluation: 10:10 - Subjective Subjective: Comfortable, not in distress, afebrile. Objective - Vital Signs/Intake and Output Vital Signs (last 24 hours): Temp Pulse Resp BP Pulse Ox 99.2 F 87 20 88/60 L 93 L 10/22/16 06:00 10/22/16 06:00 10/22/16 06:00 10/22/16 06:00 10/22/16 06:00 Intake and Output: 10/21/16 10/22/16 18:59 06:59 Intake Total 1500 1340 Output Total 1000 Balance 1500 340 - Medications Medications: Current Medications Aspirin (Ecotrin) 81 mg PO DAILY [facility] Last Admin: 10/21/16 09:14 Dose: 81 mg Atorvastatin Calcium (Lipitor) 80 mg PO DIN [facility] Last Admin: 10/21/16 18:15 Dose: 80 mg Clopidogrel Bisulfate (Plavix) 75 mg PO DAILY [facility] Last Admin: 10/21/16 09:16 Dose: 75 mg Docusate Sodium (Colace) 100 mg PO DAILY [facility] Last Admin: 10/21/16 09:13 Dose: 100 mg Enoxaparin Sodium (Lovenox) 40 mg SC DAILY [facility] PRN Reason: Protocol Last Admin: 10/21/16 09:15 Dose: 40 mg Famotidine (Pepcid) 20 mg PO BID [facility] Last Admin: 10/21/16 18:16 Dose: 20 mg Gabapentin (Neurontin) 300 mg PO TID [facility] PRN Reason: Protocol Last Admin: 10/21/16 18:16 Dose: 300 mg Sodium Chloride (Sodium Chloride 0.9%) 1,000 mls @ 100 mls/hr IV .Q10H [facility] Last Admin: 10/21/16 09:29 Dose: 100 mls/hr Metronidazole (Flagyl) 500 mg in 100 mls @ 100 mls/hr IVPB Q8 [facility] PRN Reason: Protocol Last Admin: 10/22/16 06:09 Dose: 100 mls/hr Insulin Detemir (Levemir) 60 unit SC HS [facility] Last Admin: 10/21/16 21:39 Dose: 1 unit Insulin Human Regular (Humulin R High) 0 units SC ACHS [facility] PRN Reason: Protocol Last Admin: 10/21/16 21:48 Dose: Not Given Insulin Lispro Protam/Lispro Human (Humalog Mix 75/25) 60 units SC ACB [facility] Last Admin: 10/21/16 09:14 Dose: 60 units Isosorbide Mononitrate (Imdur) 60 mg PO DAILY [facility] Last Admin: 10/21/16 09:15 Dose: 60 mg Metoprolol Tartrate (Lopressor) 25 mg PO BID [facility] Last Admin: 10/21/16 18:15 Dose: 25 mg Montelukast Sodium (Singulair) 10 mg PO HS [facility] Last Admin: 10/21/16 21:39 Dose: 10 mg Morphine Sulfate (Morphine) 4 mg IVP Q4H PRN PRN Reason: Pain, severe (8-10) Last Admin: 10/22/16 03:00 Dose: 4 mg Morphine Sulfate (Morphine) 2 mg IVP Q4H PRN PRN Reason: Pain, moderate (4-7) Mupirocin (Bactroban Ointment) 0 gm TOP BID [facility] Last Admin: 10/21/16 18:13 Dose: 1 appful Ondansetron HCl (Zofran Inj) 4 mg IVP Q6H PRN PRN Reason: Nausea/Vomiting Last Admin: 10/21/16 18:16 Dose: 4 mg Ramipril (Altace) 10 mg PO BID [facility] Last Admin: 10/21/16 18:13 Dose: 10 mg - Labs Labs: 10/21/16 05:30 10/21/16 05:30 PT 10.5 Seconds (9.9-11.8) 10/20/16 02:00 INR 0.97 (0.93-1.08) 10/20/16 02:00 APTT 38.9 Seconds (23.7-30.8) H 10/20/16 02:00 - Constitutional Appears: Non-toxic, No Acute Distress - Head Exam Head Exam: NORMAL INSPECTION - Respiratory Exam Respiratory Exam: Decreased Breath Sounds Additional comments: right anterior chest wall port site intact and clean - Cardiovascular Exam Cardiovascular Exam: +S1, +S2 - GI/Abdominal Exam GI & Abdominal Exam: Soft. absent: Tenderness Additional comments: left side with dressings in place Assessment and Plan - Assessment and Plan (Free Text) Plan: Assessment Systemic Inflammatory Response Syndrome, consider due to NSTEMI Possible mild sigmoid diverticulitis history of diverticulitis and colitis history of abdominal hernia S/P surgery (? colocutaneous fistula) DM obesity with BMI 40 CAD S/P PCI S/P hysterectomy S/P appendectomy S/P port placement on the right anterior chest wall Plan continue Bactroban ointment for the previous surgical site; since there is possible mild diverticulitis, continue Flagyl with or without Azactam (day 2) for 5-7 days will monitor clinically Would suggest Surgical evaluation of the previous site of surgery in the abdomen discussed with Dr. Negrete previously
--- NOTE | 2016-10-22 15:47 | PN ---
SUBJECTIVE: The patient is experiencing generalized body aches. She denies or chest pain. No bleeding from the groin. PHYSICAL EXAMINATION: VITAL SIGNS: Blood pressure 96/48, heart rate 104, temperature 98.3, respiration 19. HEENT: Normocephalic. CHEST: Diminished breath sounds over the bases. HEART: S1 and S2 regular. EXTREMITIES: Trace leg edema. LABORATORY DATA: Hemoglobin and hematocrit are 10.4 and 34.7, white count and platelet count 17.3 and 286,000 respectively. SMA-7: Within normal limits except for BUN of 34. Blood cultures are negative after 48 and 24 hours. ASSESSMENT: 1. Coronary artery disease status post non-ST elevation myocardial infarction with successful percutaneous coronary intervention to the left anterior descending and the circumflex artery. 2. Infected abdominal hernia mesh with extended discharge. 3. Mild anemia. 4. Improved hyperkalemia and hyponatremia. RECOMMENDATIONS: Continue _ IV Azactam, continue Plavix 75 mg once a day, subcutaneous Lovenox 40 mg once a day, Lopressor 25 mg once a day, Lipitor 80 mg once a day, aspirin 81 mg once a day. Continue IV Flagyl. Port-A-Cath can be removed only under local anesthesia. Suman Man MD MTDD
[2016-10-22] MEDS: Sodium Chloride 0.9% 1,000 ML IV SCH ×3 (16:02→20:03)
[2016-10-22] MEDS: Aztreonam 1 Gm in NS 100mL 100 ML IVPB SCH ×2 (16:44→23:50)
[2016-10-22 17:13] LABS: URINE BILIRUBIN NEGATIVE (NEGATIVE); URINE BLOOD NEGATIVE (NEGATIVE); URINE GLUCOSE (UA) 100 mg/dL (NEGATIVE); URINE LEUKOCYTE ESTERASE NEGATIVE Leu/uL (NEGATIVE); URINE NITRATE NEGATIVE (NEGATIVE); URINE PROTEIN NEGATIVE mg/dL (<30 mg/dL); URINE UROBILINOGEN 0.2 E.U./dL (<1 E.U./dL)
[2016-10-22 17:31] LABS: URINE APPEARANCE CLEAR (CLEAR); URINE COLOR YELLOW (YELLOW)
[2016-10-22] MEDS: Insulin Detemir 100 units/ml Vial (Levemir) SC SCH (22:06)
[2016-10-23] MEDS: Sodium Chloride 0.9% 1,000 ML IV SCH ×2 (01:38→10:16)
[2016-10-23] MEDS: Morphine 4 mg/ml ISec IVP PRN ×2 (02:35→08:30)
[2016-10-23] MEDS: metroNIDAZOLE IV 500 mg/100 ml 500 MG/100 ML BAG IVPB SCH ×2 (05:07→15:00)
[2016-10-23] MEDS: Aztreonam 1 Gm in NS 100mL 100 ML IVPB SCH ×2 (06:15→14:00)
[2016-10-23 07:45] VITALS: RESP 20; O2SAT 96
--- NOTE | 2016-10-23 07:53 | CP.PCM.PN ---
Subjective - Date & Time of Evaluation Date of Evaluation: 10/23/16 Time of Evaluation: 07:00 - Subjective Subjective: Surgery Progress Note Dr. Davis Patient is a 71 year old female admitted for chest pain with chest wall port cath. Patient seen and examined at bedside. Patient states no acute events overnight. Admits to chills, denies sob, n/v/d. Objective - Vital Signs/Intake and Output Vital Signs (last 24 hours): Temp Pulse Resp BP Pulse Ox 98.8 F 81 20 113/56 L 96 10/23/16 06:00 10/23/16 06:00 10/23/16 06:00 10/23/16 06:00 10/23/16 06:00 Intake and Output: 10/23/16 10/23/16 06:59 18:59 Intake Total 476 Output Total 300 Balance 176 - Medications Medications: Current Medications Aspirin (Ecotrin) 81 mg PO DAILY [facility] Last Admin: 10/22/16 09:38 Dose: 81 mg Atorvastatin Calcium (Lipitor) 80 mg PO DIN [facility] Last Admin: 10/22/16 17:39 Dose: 80 mg Clopidogrel Bisulfate (Plavix) 75 mg PO DAILY [facility] Last Admin: 10/22/16 09:38 Dose: 75 mg Docusate Sodium (Colace) 100 mg PO DAILY [facility] Last Admin: 10/22/16 09:38 Dose: 100 mg Enoxaparin Sodium (Lovenox) 40 mg SC DAILY [facility] PRN Reason: Protocol Last Admin: 10/22/16 09:45 Dose: 40 mg Famotidine (Pepcid) 20 mg PO BID [facility] Last Admin: 10/22/16 17:43 Dose: 20 mg Gabapentin (Neurontin) 300 mg PO TID [facility] PRN Reason: Protocol Last Admin: 10/22/16 17:39 Dose: 300 mg Sodium Chloride (Sodium Chloride 0.9%) 1,000 mls @ 100 mls/hr IV .Q10H [facility] Last Admin: 10/23/16 01:38 Dose: Not Given Metronidazole (Flagyl) 500 mg in 100 mls @ 100 mls/hr IVPB Q8 [facility] PRN Reason: Protocol Last Admin: 10/23/16 05:07 Dose: 100 mls/hr Aztreonam (Azactam 1 Gm) 100 mls @ 100 mls/hr IVPB Q8 [facility] PRN Reason: Protocol Stop: 10/27/16 14:01 Last Admin: 10/23/16 06:15 Dose: 100 mls/hr Insulin Detemir (Levemir) 60 unit SC [facility] Last Admin: 10/22/16 22:06 Dose: 60 unit Insulin Human Regular (Humulin R High) 0 units SC ACHS [facility] PRN Reason: Protocol Last Admin: 10/22/16 22:00 Dose: Not Given Insulin Lispro Protam/Lispro Human (Humalog Mix 75/25) 60 units SC ACB [facility] Last Admin: 10/22/16 10:33 Dose: 60 units Isosorbide Mononitrate (Imdur) 60 mg PO DAILY [facility] Last Admin: 10/22/16 09:38 Dose: 60 mg Metoprolol Tartrate (Lopressor) 25 mg PO BID [facility] Last Admin: 10/22/16 17:42 Dose: 25 mg Montelukast Sodium (Singulair) 10 mg PO [facility] Last Admin: 10/22/16 21:53 Dose: 10 mg Morphine Sulfate (Morphine) 4 mg IVP Q4H PRN PRN Reason: Pain, severe (8-10) Last Admin: 10/23/16 02:35 Dose: 4 mg Morphine Sulfate (Morphine) 2 mg IVP Q4H PRN PRN Reason: Pain, moderate (4-7) Mupirocin (Bactroban Ointment) 0 gm TOP BID [facility] Last Admin: 10/22/16 18:03 Dose: Not Given Ondansetron HCl (Zofran Inj) 4 mg IVP Q6H PRN PRN Reason: Nausea/Vomiting Last Admin: 10/21/16 18:16 Dose: 4 mg Ramipril (Altace) 10 mg PO BID [facility] Last Admin: 10/22/16 17:42 Dose: 10 mg - Labs Labs: 10/22/16 07:34 10/22/16 07:34 PT 10.5 Seconds (9.9-11.8) 10/20/16 02:00 INR 0.97 (0.93-1.08) 10/20/16 02:00 APTT 38.9 Seconds (23.7-30.8) H 10/20/16 02:00 - Constitutional Appears: Well - Head Exam Head Exam: ATRAUMATIC, NORMAL INSPECTION, NORMOCEPHALIC - ENT Exam ENT Exam: Mucous Membranes Moist, Normal Exam - Respiratory Exam Respiratory Exam: Clear to Ausculation Bilateral, NORMAL BREATHING PATTERN - Cardiovascular Exam Cardiovascular Exam: REGULAR RHYTHM, RRR, +S1, +S2 - GI/Abdominal Exam GI & Abdominal Exam: Soft, Normal Bowel Sounds - Neurological Exam Neurological Exam: Alert, Awake - Skin Skin Exam: Normal Color, Warm Assessment and Plan - Assessment and Plan (Free Text) Plan: 71 year old female patient admitted with chest pain. Patient has R chest wall port-a-cath - Patient has had R chest wall port-a-cath for 11 years, last 2 years associated with pain; last used in April 2015 - Patient was admitted, cardiac enzymes were found to be elevated; Cardiology is currently following - Patient to continue on plavix and aspirin due to chest pain being of cardiac etiology - No sign of infection due to port-a-cath evidenced by negative blood cultures, WBC count downtrending - Removal can be done as elective procedure under anesthesia as requested by patient - Continue with medical management, no surgery to be done at this time
[2016-10-23] MEDS: Insulin Reg-HIGH-Coverage SC SCH ×3 (08:29→17:33)
[2016-10-23] MEDS: Enoxaparin 40 mg Syringe SC SCH (10:13)
[2016-10-23] MEDS: Insulin Lispro (humaLOG) MIX 75/25(10 ml) SC SCH (10:14)
[2016-10-23 10:18] LABS: BASO # 0.02 K/mm3 (0.0-2.0); BASO % 0.2 % (0.0-3.0); EOS # 0.5 (0.0-0.7); EOS % 3.8 % (1.5-5.0); GRAN # 9.39 (1.4-6.5); GRAN % 71.7 % (50.0-68.0); HEMOGLOBIN 10.9 g/dL (12.0-16.0); LYMPH % 15.3 % (22.0-35.0); MEAN CELL VOLUME 81.8 fl (80.0-105.0); MEAN CORPUSCULAR HEMOGLOBIN 25.1 pg (25.0-35.0); MEAN CORPUSCULAR HGB CONC 30.7 g/dl (31.0-37.0); MEAN PLATELET VOLUME 9.1 fl (7.0-11.0); MONO # 1.2 (0.1-0.6); PLATELET COUNT 217 10^3/uL (120.0-450.0); RBC 4.34 10^6/uL (3.5-6.1); WHITE BLOOD COUNT 13.1 10^3/ul (4.5-11.0)
[2016-10-23 10:28] LABS: ALT/SGPT 26 U/L (7-56); AST/SGOT 20 U/L (15-39); BLOOD UREA NITROGEN 21 mg/dL (7-21); GFR AFRICAN-AMERICAN > 60; GFR NON-AFRICAN AMERICAN > 60
[2016-10-23] MEDS ORDERED: Morphine 4 mg/ml ISec IVP PRN (10:49)
[2016-10-23 12:16] VITALS: BP 115/50; PULSE 87; TEMP 98
--- NOTE | 2016-10-23 13:52 | PN ---
DATE: 10/23/2016 SUBJECTIVE: The patient is in a chair complaining of diffuse body aches. PHYSICAL EXAMINATION: VITAL SIGNS: Blood pressure 115/50, heart rate in the 80s. The patient is afebrile. NECK: Negative JVD. LUNGS: Without rales. HEART: Reveals S1, S2. EXTREMITIES: Without edema. LABORATORY DATA: The glucose is 127. Hemoglobin is 10.9 with a white count of 13.1. IMPRESSION: 1. Status post percutaneous transluminal coronary angioplasty and stent of the left anterior descending and circumflex arteries, percutaneous transluminal coronary angioplasty and stent of the proximal left anterior descending and circumflex arteries. 2. Coronary artery disease. 3. Obesity. 4. Diffuse body aches. 5. Diabetes mellitus. 6. Hypercholesterolemia. 7. infection. Given these findings, the patient is stable from a cardiac perspective. We will discontinue telemetry today. Taurus Jacques MD
--- NOTE | 2016-10-23 17:06 | CP.PCM.PN ---
Subjective - Date & Time of Evaluation Date of Evaluation: 10/23/16 Time of Evaluation: 08:10 - Subjective Subjective: Comfortable in bed, not in distress. Objective - Vital Signs/Intake and Output Vital Signs (last 24 hours): Temp Pulse Resp BP Pulse Ox 98.1 F 84 18 93/52 L 93 L 10/23/16 00:01 10/23/16 02:00 10/23/16 00:01 10/23/16 00:01 10/23/16 00:01 - Medications Medications: Current Medications Aspirin (Ecotrin) 81 mg PO DAILY REPLACED BY [facility] Last Admin: 10/22/16 09:38 Dose: 81 mg Atorvastatin Calcium (Lipitor) 80 mg PO DIN REPLACED BY [facility] Last Admin: 10/22/16 17:39 Dose: 80 mg Clopidogrel Bisulfate (Plavix) 75 mg PO DAILY REPLACED BY [facility] Last Admin: 10/22/16 09:38 Dose: 75 mg Docusate Sodium (Colace) 100 mg PO DAILY REPLACED BY [facility] Last Admin: 10/22/16 09:38 Dose: 100 mg Enoxaparin Sodium (Lovenox) 40 mg SC DAILY REPLACED BY [facility] PRN Reason: Protocol Last Admin: 10/22/16 09:45 Dose: 40 mg Famotidine (Pepcid) 20 mg PO BID REPLACED BY [facility] Last Admin: 10/22/16 17:43 Dose: 20 mg Gabapentin (Neurontin) 300 mg PO TID REPLACED BY [facility] PRN Reason: Protocol Last Admin: 10/22/16 17:39 Dose: 300 mg Sodium Chloride (Sodium Chloride 0.9%) 1,000 mls @ 100 mls/hr IV .Q10H REPLACED BY [facility] Last Admin: 10/23/16 01:38 Dose: Not Given Metronidazole (Flagyl) 500 mg in 100 mls @ 100 mls/hr IVPB Q8 REPLACED BY [facility] PRN Reason: Protocol Last Admin: 10/23/16 05:07 Dose: 100 mls/hr Aztreonam (Azactam 1 Gm) 100 mls @ 100 mls/hr IVPB Q8 REPLACED BY [facility] PRN Reason: Protocol Stop: 10/27/16 14:01 Last Admin: 10/23/16 06:15 Dose: 100 mls/hr Insulin Detemir (Levemir) 60 unit SC HS REPLACED BY [facility] Last Admin: 10/22/16 22:06 Dose: 60 unit Insulin Human Regular (Humulin R High) 0 units SC ACHS REPLACED BY [facility] PRN Reason: Protocol Last Admin: 10/22/16 22:00 Dose: Not Given Insulin Lispro Protam/Lispro Human (Humalog Mix 75/25) 60 units SC ACB REPLACED BY [facility] Last Admin: 10/22/16 10:33 Dose: 60 units Isosorbide Mononitrate (Imdur) 60 mg PO DAILY REPLACED BY [facility] Last Admin: 10/22/16 09:38 Dose: 60 mg Metoprolol Tartrate (Lopressor) 25 mg PO BID REPLACED BY [facility] Last Admin: 10/22/16 17:42 Dose: 25 mg Montelukast Sodium (Singulair) 10 mg PO HS REPLACED BY [facility] Last Admin: 10/22/16 21:53 Dose: 10 mg Morphine Sulfate (Morphine) 4 mg IVP Q4H PRN PRN Reason: Pain, severe (8-10) Last Admin: 10/23/16 02:35 Dose: 4 mg Morphine Sulfate (Morphine) 2 mg IVP Q4H PRN PRN Reason: Pain, moderate (4-7) Mupirocin (Bactroban Ointment) 0 gm TOP BID REPLACED BY [facility] Last Admin: 10/22/16 18:03 Dose: Not Given Ondansetron HCl (Zofran Inj) 4 mg IVP Q6H PRN PRN Reason: Nausea/Vomiting Last Admin: 10/21/16 18:16 Dose: 4 mg Ramipril (Altace) 10 mg PO BID REPLACED BY [facility] Last Admin: 10/22/16 17:42 Dose: 10 mg - Labs Labs: 10/22/16 07:34 10/22/16 07:34 PT 10.5 Seconds (9.9-11.8) 10/20/16 02:00 INR 0.97 (0.93-1.08) 10/20/16 02:00 APTT 38.9 Seconds (23.7-30.8) H 10/20/16 02:00 - Constitutional Appears: Non-toxic, No Acute Distress - Head Exam Head Exam: NORMAL INSPECTION - ENT Exam ENT Exam: Mucous Membranes Moist - Neck Exam Neck Exam: absent: Meningismus - Respiratory Exam Respiratory Exam: Decreased Breath Sounds - Cardiovascular Exam Cardiovascular Exam: +S1, +S2 - GI/Abdominal Exam GI & Abdominal Exam: Soft. absent: Tenderness Assessment and Plan - Assessment and Plan (Free Text) Plan: Assessment Systemic Inflammatory Response Syndrome, consider due to NSTEMI Possible mild sigmoid diverticulitis history of diverticulitis and colitis history of abdominal hernia S/P surgery (? colocutaneous fistula) DM obesity with BMI 40 CAD S/P PCI S/P hysterectomy S/P appendectomy S/P port placement on the right anterior chest wall Plan continue Bactroban ointment for the previous surgical site; since there is possible mild diverticulitis, continue Flagyl with or without Azactam (day 3) for 5-7 days will monitor clinically Would suggest Surgical evaluation of the previous site of surgery in the abdomen discussed with Dr. Negrete previously
== END 2016-10-23 18:27 | disposition home or self-care (01) | DRG 247 ==
LOC: ED 18:04 → ERH 23:59 → 2RSO 10-20 01:30 → CCU 10-20 09:19 → 2RSO 10-21 22:08
PROVIDERS: ADMIT Internal Medicine; ATTEND Internal Medicine
PROC: 027135Z Dilation of Coronary Artery, Two Arteries with Two Drug-eluting Intraluminal Devices, Percutaneous Approach (ICD-10-PCS; principal; 2016-10-20)
PROC: 4A023N7 Measurement of Cardiac Sampling and Pressure, Left Heart, Percutaneous Approach (ICD-10-PCS; 2016-10-20)
PROC: B211YZZ Fluoroscopy of Multiple Coronary Arteries using Other Contrast (ICD-10-PCS; 2016-10-20)
PROC: B215YZZ Fluoroscopy of Left Heart using Other Contrast (ICD-10-PCS; 2016-10-20)
DX: I21.4 Non-ST elevation (NSTEMI) myocardial infarction (principal); R65.10 Systemic inflammatory response syndrome (SIRS) of non-infectious origin without acute organ dysfunction; I25.10 Atherosclerotic heart disease of native coronary artery without angina pectoris; E11.65 Type 2 diabetes mellitus with hyperglycemia; E87.1 Hypo-osmolality and hyponatremia; K57.92 Diverticulitis of intestine, part unspecified, without perforation or abscess without bleeding; Z68.41 Body mass index [BMI] 40.0-44.9, adult; J98.11 Atelectasis; E87.5 Hyperkalemia; J44.9 Chronic obstructive pulmonary disease, unspecified; K80.70 Calculus of gallbladder and bile duct without cholecystitis without obstruction; R26.2 Difficulty in walking, not elsewhere classified; E78.5 Hyperlipidemia, unspecified; E87.6 Hypokalemia; I10 Essential (primary) hypertension; K21.9 Gastro-esophageal reflux disease without esophagitis; K52.9 Noninfective gastroenteritis and colitis, unspecified; D64.9 Anemia, unspecified; E78.00 Pure hypercholesterolemia, unspecified; E66.9 Obesity, unspecified; Z95.5 Presence of coronary angioplasty implant and graft; Z79.4 Long term (current) use of insulin; Z87.891 Personal history of nicotine dependence; Z90.710 Acquired absence of both cervix and uterus; Z90.49 Acquired absence of other specified parts of digestive tract; Z96.651 Presence of right artificial knee joint